=== PATIENT | female | born 1985 | race Caucasian/White ===

== ENCOUNTER → 2016-12-31 | Outpatient (CLI) | payer BC ==
--- NOTE | 2016-12-31 17:56 | Diagnostic Imaging Report ---
INDICATION: survey. TECHNIQUE: Multiple real-time grayscale images were obtained over the gravid uterus. COMPARISON: None FINDINGS: There is a single live intrauterine fetus currently vertex. Fetus is active. Amniotic fluid index is normal. Placenta is anterior and not low. heart rate of 144 beats per minute. Cervical length of 5.4 cm. anatomical survey appears normal with the exception of the stomach is not demonstrated. biometric measurements are currently average for 19 week 1 day gestation. Biometrical measurements are as follows: Biparietal 4.22 cm, age 18 weeks 6 days. Head circumference 16.14 cm, age 19 weeks 0 days. Abdominal circumference 14.03 cm, age 19 weeks 3 days. Femur length 2.98 cm, age 19 weeks 2 days. Sonographic estimate age: 19 weeks 1 days. Sonographic estimated date of delivery: 05/26/2017. Estimated Weight: 283 gm (+/- 41 gm). LMP percentile: 61%. heart rate: 144 beats per minute. Cervical length: 5.4 cm. number: 1 of 1. IMPRESSION: 1. Normal survey with the exception of the stomach not being visualized. 2. biometric measurements consistent with 19 week 1 day gestation on today's exam correlating well with previous ultrasound indicating 19 week 0 day gestation. Dictated by: Dictated on workstation # [id number]
== END ==
LOC: RAD 16:45
PROVIDERS: ATTEND Obstetrics & Gynecology
DX: Z36.89 Encounter for other specified antenatal screening (principal); Z3A.19 19 weeks gestation of pregnancy
CPT/HCPCS: 76805; 76817

== ENCOUNTER 2017-05-12 15:05 | Inpatient (IN) | payer BC ==
[~2017-05-12] VITALS: Ht 167.6 cm; Wt 95.3 kg
[2017-05-12] VITALS (37 sets, daily range): BP systolic 108–175; BP diastolic 58–96
--- OUTSIDE RECORDS SUMMARY | 2017-05-12 16:24 | XMS REPORT ---
Author Author Daina Irwin [facility] Address [address] [facility] [address] [place], [place] [id number] Care Team Providers Care Disease Control Inspector Name Role Phone Daina Irwin PCP Unavailable Allergies and Adverse Reactions Name Reaction Notes NO KNOWN DRUG ALLERGIES Plan of Treatment Planned Activity Comments Planned Date Planned Time Plan/Goal Transabdominal / Transvaginal US (non-OB) 12/17/2016 12:00 AM Transabdominal / Transvaginal US (non-OB) 12/17/2016 12:00 AM Complete obstetrical ultrasound of single fetus at more than 14 weeks gestation 12/17/2016 12:00 AM Medications Active Name Start Date Estimated Completion Date SIG Comments lorazepam 0.5 mg oral tablet Camrese 0.15 mg-30 mcg (84)/10 mcg (7) oral tablets,dose pack,3 month 201609/05/2017 TAKE ONE TABLET BY MOUTH ONCE DAILY for 90 days meloxicam 15 mg oral tablet take 1 tablet (15 mg) by oral route once daily Name Start Date Expiration Date SIG Comments Sprintec (28) 0.25-35 mg-mcg oral tablet 08/02/2010 07/04/2011 take 1 tablet by oral route once daily for 28 days Pura 0.35 mg oral tablet 01/07/2012 02/04/2012 TAKE ONE TABLET BY MOUTH EVERY DAY Flagyl 500 mg oral tablet 03/08/2013 03/15/2013 take 1 tablet (500 mg) by oral route 2 times per day for 7 days Seasonique 0.15 mg-30 mcg (84)/10 mcg (7) oral tablets,dose pack,3 month 03/0101/31/2015 take 1 tablet by oral route once daily for 84 days Diflucan 150 mg oral tablet 06/12/2015 06/13/2015 take 1 tablet (150 mg) by oral route once for 1 day Camrese 0.15 mg-30 mcg (84)/10 mcg (7) oral tablets,dose pack,3 month 201503/08/2016 TAKE ONE TABLET BY MOUTH ONCE DAILY for 90 days Flagyl 500 mg oral tablet 08/28/2015 09/04/2015 take 1 tablet (500 mg) by oral route 2 times per day for 7 days Diflucan 150 mg oral tablet 09/10/2016 09/11/2016 take 1 tablet (150 mg) by oral route once for 1 day Discontinued Name Start Date Discontinued Date SIG Comments Ortho Micronor 0.35 mg oral tablet 06/04/2010 08/02/2010 take 1 tablet by oral route once daily for 28 days Pt. quit Sprintec (28) 0.25-35 mg-mcg oral tablet 02/16/2013 03/10/2013 TAKE ONE TABLET BY MOUTH EVERY DAY meloxicam oral 09/10/2016 Diflucan 150 mg oral tablet 02/28/2013 03/10/2013 take 1 tablet (150mg) by oral route X 1 dose Depo-Provera 150 mg/mL intramuscular syringe 02/28/2013 11/17/2013 inject 1 milliliter (150 mg) by intramuscular route every 3 months Flagyl 500 mg oral tablet 03/01/2014 04/10/2014 take 1 tablet (500 mg) by oral route every 12 hours for 7 days Problem List Description Status Onset Low grade squamous intraepithelial lesion (LGSIL) on Pap smear Active 2014 Breast Skin Texture Changes Active 07/06/2014 Vital Signs Date Time BP-Sys(mm[Hg] BP-Kaylin(mm[Hg]) HR(bpm) RR(rpm) Temp WT HT HC BMI BSA BMI Percentile O2 Sat(%) 12/16/2016 4:06:00 PM 111 mmHg 67 mmHg 87 bpm 98.8 F 175 lbs 09/10/2016 8:55:00 AM 108 mmHg 73 mmHg 69 bpm 97.6 F 163 lbs 66 in 26.3086 kg/m 1.8555 m 08/28/2015 11:47:00 AM 131 mmHg 77 mmHg 71 bpm 97.8 F 166 lbs 66 in 26.79 kg/m2 1.87 m2 08/09/2015 1:31:00 PM 109 mmHg 71 mmHg 71 bpm 97.8 F 167.5 lbs 66 in 27.0349 kg/m 1.881 m 07/25/2015 2:14:00 PM 120 mmHg 79 mmHg 82 bpm 98.1 F 167 lbs 66 in 26.95 kg/m2 1.88 m2 06/27/2015 3:40:00 PM 123 mmHg 67 mmHg 67 bpm 98 F 168.125 lbs 66 in 27.1358 kg/m 1.8845 m 06/12/2015 3:14:00 PM 125 mmHg 66 mmHg 86 bpm 98.2 F 171 lbs 66 in 27.60 kg/m2 1.90 m2 11/02/2014 9:30:00 AM 118 mmHg 72 mmHg 76 bpm 97.4 F 164 lbs 66 in 26.47 kg/m 1.8612 m 10/09/2014 1:50:00 PM 113 mmHg 72 mmHg 77 bpm 98 F 165 lbs 66 in 26.63 kg/m2 1.87 m2 07/06/2014 4:03:00 PM 120 mmHg 79 mmHg 74 bpm 97.6 F 163 lbs 66 in 26.3086 kg/m 1.8555 m 04/10/2014 1:37:00 PM 123 mmHg 70 mmHg 67 bpm 97.6 F 166 lbs 66 in 26.79 kg/m2 1.87 m2 03/01/2014 2:09:00 PM 119 mmHg 62 mmHg 69 bpm 97.6 F 168 lbs 66 in 27.1156 kg/m 1.8838 m 11/17/2013 4:17:00 PM 122 mmHg 75 mmHg 72 bpm 98.4 F 163 lbs 66 in 26.31 kg/m2 1.86 m2 08/23/2013 4:24:00 PM 114 mmHg 75 mmHg 71 bpm 97.8 F 160 lbs 66 in 25.8244 kg/m 1.8384 m 06/02/2013 3:08:00 PM 111 mmHg 72 mmHg 82 bpm 97.6 F 160.125 lbs 66 in 25.84 kg/m2 1.84 m2 03/10/2013 3:26:00 PM 109 mmHg 69 mmHg 73 bpm 97.8 F 164 lbs 66 in 26.47 kg/m 1.8612 m 02/28/2013 4:14:00 PM 119 mmHg 67 mmHg 63 bpm 97.5 F 165 lbs 66 in 26.63 kg/m2 1.87 m2 01/29/2012 4:58:00 PM 109 mmHg 66 mmHg 68 bpm 98.3 F 159.25 lbs 66 in 25.7034 kg/m 1.8341 m 05/28/2011 5:09:00 PM 110 mmHg 71 mmHg 81 bpm 98.1 F 161.125 lbs 66 in 26.01 kg/m2 1.84 m2 11/27/2010 11:14:00 AM 110 mmHg 75 mmHg 66 bpm 171 lbs 66 in 27.5998 kg/m 1.9005 m 06/04/2010 3:20:00 PM 118 mmHg 84 mmHg 107 bpm 97 F 177 lbs 11/27/2009 11:56:00 AM 112 mmHg 72 mmHg 85 bpm 97.8 F 165 lbs 66 in 26.6314 kg/m 1.8669 m Social History Name Description Comments Tobacco Never smoker Alcohol Current some day History of Procedures Date Ordered Description Order Status 11/27/2010 12:00 AM SPECIMEN HANDLING OFFICE-LAB Reviewed 11/27/2010 12:00 AM CYTOPATH TBS C/V MANUAL Reviewed 06/12/2015 12:00 AM SPECIMEN HANDLING OFFICE-LAB Reviewed 06/12/2015 12:00 AM CYTOPATH C/V THIN LAYER Reviewed 06/27/2015 4:02 PM URINE TEST Reviewed 06/27/2015 12:00 AM BX/CURETT OF CERVIX W/SCOPE Reviewed 07/25/2015 12:00 AM COMPLETE CBC W/AUTO DIFF WBC Reviewed 07/25/2015 12:00 AM URINE TEST Reviewed 07/25/2015 12:00 AM Type & Screen (PREOP) Reviewed 09/10/2016 12:00 AM SPECIMEN HANDLING OFFICE-LAB Reviewed 09/10/2016 12:00 AM CYTOPATH C/V THIN LAYER Reviewed 01/29/2012 12:00 AM CYTOPATH C/V MANUAL Reviewed 01/29/2012 12:00 AM SPECIMEN HANDLING OFFICE-LAB Reviewed 01/29/2012 12:00 AM CHLAMYDIA CULTURE Reviewed 01/29/2012 12:00 AM N.GONORRHOEAE DNA AMP PROB Reviewed 02/28/2013 12:00 AM CYTOPATH C/V MANUAL Reviewed 02/28/2013 12:00 AM SPECIMEN HANDLING OFFICE-LAB Reviewed 02/28/2013 12:00 AM CHLAMYDIA CULTURE Reviewed 02/28/2013 12:00 AM N.GONORRHOEAE DNA AMP PROB Reviewed 02/28/2013 12:00 AM TRICHOMONAS ASSAY W/OPTIC Reviewed 03/10/2013 3:45 PM THER/PROPH/DIAG INJ SC/IM Reviewed 03/10/2013 3:45 PM Depo-Provera 150 Mg Reviewed 06/02/2013 12:00 AM THER/PROPH/DIAG INJ SC/IM Reviewed 06/02/2013 12:00 AM Injection, medroxyprogesterone acetate, 150 mg (brought in by patient) Reviewed 11/27/2009 12:00 AM CYTOPATH C/V THIN LAYER Reviewed 11/27/2009 12:00 AM SPECIMEN HANDLING OFFICE-LAB Reviewed 11/27/2009 12:00 AM N.GONORRHOEAE DNA AMP PROB Reviewed 11/27/2009 12:00 AM CHLAMYDIA CULTURE Reviewed 11/27/2009 12:00 AM OBSTETRIC PANEL Reviewed 11/27/2009 12:00 AM HIV-1ANTIBODY Reviewed 11/27/2009 12:00 AM URINALYSIS AUTO W/SCOPE Reviewed 12/12/2009 12:00 AM OB US >/=14 WKS SNGL FETUS Reviewed 01/28/2010 12:00 AM EXAM OF CERVIX W/SCOPE Reviewed 08/23/2013 4:39 PM THER/PROPH/DIAG INJ SC/IM Reviewed 03/07/2010 12:00 AM GLUCOSE TEST Reviewed 03/07/2010 12:00 AM Type and screen Reviewed 03/07/2010 12:00 AM COMPLETE CBC W/AUTO DIFF WBC Reviewed 03/11/2010 12:00 AM GLUCOSE TOLERANCE TEST (GTT) Reviewed 11/17/2013 4:41 PM URINE TEST Reviewed 04/18/2010 12:00 AM CULTURE OTHR SPECIMN AEROBIC Reviewed 06/04/2010 12:00 AM CYTOPATH C/V MANUAL Reviewed 06/04/2010 12:00 AM SPECIMEN HANDLING OFFICE-LAB Reviewed 03/01/2014 12:00 AM SPECIMEN HANDLING OFFICE-LAB Reviewed 03/01/2014 12:00 AM CYTOPATH C/V THIN LAYER Reviewed 04/10/2014 12:00 AM BX/CURETT OF CERVIX W/SCOPE Reviewed 10/09/2014 2:19 PM URINE TEST Reviewed 10/09/2014 12:00 AM CYTOPATH C/V THIN LAYER Reviewed 10/09/2014 12:00 AM SPECIMEN HANDLING OFFICE-LAB Reviewed 10/09/2014 12:00 AM COMPLETE CBC W/AUTO DIFF WBC Reviewed 11/02/2014 9:39 AM URINE TEST Reviewed Results Summary Date and Description Results 11/27/2009 1:31 PM COLOR YELLOW APPEARANCE CLEAR SPEC GRAV 1.015 pH 7.0 PROTEIN NEGATIVE GLUCOSE NEGATIVE KETONE NEGATIVE BILIRUBIN NEGATIVE BLOOD NEGATIVE NITRITE NEGATIVE LEUK SCREEN NEGATIVE WBC/HPF 0-5 RBC/HPF 0-5 CASTS/ LPF NEGATIVE CRYSTALS 1+ AMORPHOUS MUCOUS THRDS NEGATIVE BACTERIA FEW EPITH CELLS FEW SQUAMOUS TRICHOMONAS NEGATIVE YEAST NEGATIVE CULT ORDERED YES 11/27/2009 1:32 PM RUBELLA 20.0 IU/mLWBC 7.9 RBC 4.06 HGB 12.20 g/dLHCT 35.80 % MCV 88.0 fLMCH 30.0 pgMCHC 34.10 g/dLRDW SD 42 RDW CV 13.10 %MPV 10.90 fLPLT 241 NRBC# 0.00 NRBC% 0.0 %NEUT 74.10 %%LYMP 19.30 %%MONO 5.80 %%EOS 0.80 %%BASO 0.0 %#NEUT 5.89 #LYMP 1.53 #MONO 0.46 #EOS 0.06 #BASO 0.00 MANUAL DIFF NOT IND 03/07/2010 12:14 PM WBC 10.7 RBC 3.89 HGB 12.10 g/dLHCT 36.30 %MCV 93.0 fLMCH 31.10 pgMCHC 33.30 g/dLRDW SD 47 RDW CV 13.70 %MPV 10.70 fLPLT 262 NRBC# 0.00 NRBC% 0.0 %NEUT 79.90 %%LYMP 15.20 %%MONO 4.50 %%EOS 0.30 %%BASO 0.10 %#NEUT 8.54 #LYMP 1.62 #MONO 0.48 #EOS 0.03 #BASO 0.01 MANUAL DIFF NOT IND 11/17/2013 4:41 PM HCG Ur Ql negative 10/09/2014 2:19 PM Test, Urine negative 10/09/2014 2:35 PM WBC 6.6 RBC 3.95 HGB 11.80 g/dLHCT 36.10 %MCV 91.0 fLMCH 29.90 pgMCHC 32.70 g/dLRDW SD 43 RDW CV 12.90 %MPV 10.30 fLPLT 239 NRBC# 0.00 NRBC% 0.0 %NEUT 61.40 %%LYMP 33.20 %%MONO 4.50 %%EOS 0.60 %%BASO 0.30 %#NEUT 4.07 #LYMP 2.20 #MONO 0.30 #EOS 0.04 #BASO 0.02 MANUAL DIFF NOT IND 11/02/2014 9:40 AM Test, Urine negative 06/27/2015 4:39 PM Test, Urine negative 07/25/2015 3:35 PM WBC 5.5 RBC 4.29 HGB 12.80 g/dLHCT 40.10 %MCV 94.0 fLMCH 29.80 pgMCHC 31.90 g/dLRDW SD 44 RDW CV 12.80 %MPV 10.40 fLPLT 262 NRBC# 0.00 NRBC% 0.0 %NEUT 59.90 %%LYMP 32.0 %%MONO 6.40 %%EOS 1.10 %%BASO 0.40 %#NEUT 3.30 #LYMP 1.76 #MONO 0.35 #EOS 0.06 #BASO 0.02 MANUAL DIFF NOT IND TEST NEGATIVE History Of Immunizations Not available. History of Past Illness Name Date of Onset Comments test confirmed positive Nov 27 2009 11:59AM , First Normal Dec 12 2009 5:47PM Low grade squamous intraepithelial lesion (LGSIL) on Pap smear Jan 28 2010 4: 52PM Low grade squamous intraepithelial lesion (LGSIL) on Pap smear 04/10/2014 Breast Skin Texture Changes 07/06/2014 , First Normal Mar 07 2010 10:35AM Impaired glucose tolerance test (oral) Mar 11 2010 3:23PM , First Normal Mar 11 2010 3:23PM Group B Strep Screening, Apr 18 2010 8:57AM , First Normal Apr 18 2010 8:57AM Post- Follow-Up Jun 04 2010 3:23PM Cervical Dysplasia, mild Jun 04 2010 3:23PM Abnormal PAP-low grade (LGSIL) Nov 27 2010 11:15AM Routine gynecological examination Jan 29 2012 5:01PM Routine gynecological examination Feb 28 2013 4:19PM Contraceptive management Feb 28 2013 4:19PM Vaginal Discharge Feb 28 2013 4:19PM Contraceptive counseling (Depo-Provera) Mar 10 2013 3:45PM Contraceptive counseling (Depo-Provera) Jun 02 2013 3:17PM Contraceptive counseling (Depo-Provera) Aug 23 2013 4:38PM Contraceptive Management Nov 17 2013 4:20PM Routine gynecological examination Mar 01 2014 2:13PM Contraception, Oral Prescription Mar 01 2014 2:13PM Contraceptive management Mar 01 2014 2:13PM Bacterial Vaginitis Mar 01 2014 2:13PM Low grade squamous intraepithelial lesion (LGSIL) on Pap smear Apr 10 2014 1: 39PM Breast Skin Texture Changes Jul 06 2014 4:08PM Pap Smear Oct 09 2014 1:55PM Papanicolaou smear of cervix with low grade squamous intraepithelial lesion ( LGSIL) Oct 09 2014 1:55PM Dizziness Oct 09 2014 1:55PM Bruising Oct 09 2014 1:55PM Special investigations and examinations; examination or test; examination or test, negative result Nov 02 2014 9:39AM Low grade squamous intraepithelial lesion (LGSIL) on Pap smear Nov 02 2014 9: 32AM Cervicitis Nov 02 2014 9:32AM Vaginal discharge Nov 02 2014 9:32AM Low grade squamous intraepithelial lesion (LGSIL) on Pap smear Nov 02 2014 9: 32AM Cervicitis Nov 02 2014 9:32AM Vaginal discharge Nov 02 2014 9:32AM Routine gynecological examination Jun 12 2015 3:19PM Contraceptive management Jun 12 2015 3:19PM Vaginal Discharge Jun 12 2015 3:19PM Encounter for test, result negative Jun 27 2015 4:02PM Low grade squamous intraepithelial lesion (LGSIL) on Pap smear Jun 27 2015 3: 44PM Pre-op exam Jul 25 2015 2:14PM ADWOA II (cervical intraepithelial neoplasia II) Jul 25 2015 2:14PM Abnormal anal Papanicolaou smear Aug 09 2015 1:34PM Cervical dysplasia, moderate Aug 09 2015 1:34PM Postoperative Examination Following Surgery Aug 28 2015 11:49AM ADWOA II (cervical intraepithelial neoplasia II) Aug 28 2015 11:49AM Routine gynecological examination Sep 10 2016 8:59AM Contraceptive management Sep 10 2016 8:59AM Vaginal yeast infection Sep 10 2016 8:59AM Pelvic pain Dec 17 2016 9:03AM test positive Dec 17 2016 9:03AM Payers Insurance Name Company Name Plan Name Plan Number Policy Number Policy Group Number Start Date [employer] [place] [id number] N/A [place] [employer] [place] [employer] [place] Prog [id number] N/A [facility] [id number] N/A [facility] [employer] [id number] N/A [facility] [employer] [id number] N/A History of Encounters Visit Date Visit Type Provider 12/16/2016 Office visit Daina Irwin DYNAMICIST 09/10/2016 Office visit Daina Irwin DYNAMICIST 08/28/[address] Lita Hines MD 08/09/2015 Surgery DYLAN COATES DO 08/01/[address] [facility] [address] Lita Hines MD 07/25/[address] Lita Hines MD 06/27/[address] Lita Hines MD 06/12/2015 Office visit Daina Irwin DYNAMICIST 11/02/[address] MARIELOS ROMO MD 10/09/2014 Office visit Daina Irwin DYNAMICIST 07/06/2014 Office visit Daina Irwin DYNAMICIST 04/10/2014 Procedures Sumi Elise MD 03/01/2014 Office visit Daina Irwin DYNAMICIST 11/17/2013 Office visit Daina Irwin DYNAMICIST 08/23/2013 Nurse visit Daina Irwin DYNAMICIST 06/02/2013 Nurse visit Sumi Elise MD 03/10/2013 Nurse visit Daina Irwin DYNAMICIST 02/28/2013 Office visit Daina Irwin DYNAMICIST 01/29/2012 Office visit Sumi Elise MD 05/28/2011 Voided Sumi Elise MD 11/27/2010 Office visit Sumi Elise MD 06/04/2010 Office visit Sumi Elise MD 05/02/2010 [facility] Sumi Elise MD 04/29/2010 Office visit Sumi Elise MD 04/18/2010 [facility] Sumi Elise MD 04/18/2010 Office visit Sumi Elise MD 04/04/2010 Office visit Sumi Elise MD 03/21/2010 Office visit Sumi Elise MD 03/07/2010 Office visit Sumi Elise MD 02/11/2010 Office visit Sumi Elise MD 01/28/2010 Procedures Sumi Elise MD 01/15/2010 Office visit Sumi Elise MD 12/12/2009 Office visit Sumi Elise MD 11/27/2009 Office visit Sumi Elise MD
--- OUTSIDE RECORDS SUMMARY | 2017-05-12 16:25 | XMS REPORT ---
Author Author Lita Hines [facility] Address [address] [place], [place] [id number] Care Team Providers Care Clam Grower Name Role Phone Lita Hines PCP Unavailable Allergies and Adverse Reactions Name Reaction Notes NO KNOWN DRUG ALLERGIES Plan of Treatment Not available. Medications Active Name Start Date Estimated Completion Date SIG Comments meloxicam oral lorazepam 0.5 mg oral tablet Camrese 0.15 mg-30 mcg (84)/10 mcg (7) oral tablets,dose pack,3 month 201503/08/2016 TAKE ONE TABLET BY MOUTH ONCE DAILY for 90 days Name Start Date Expiration Date SIG Comments [...] TAKE ONE TABLET BY MOUTH EVERY DAY Diflucan 150 mg oral tablet 02/28/2013 03/10/2013 [...] HC BMI BSA BMI Percentile O2 Sat(%) 06/27/2015 3:40:00 PM 123 mmHg 67 mmHg 67 bpm 98 F 168.125 lbs 66 in 27.14 kg/m2 1.88 m2 06/12/2015 3:14:00 PM 125 mmHg 66 mmHg 86 bpm 98.2 F 171 lbs 66 in 27.5998 kg/m 1.9005 m 11/02/2014 9:30:00 AM 118 mmHg 72 mmHg 76 bpm 97.4 F 164 lbs 66 in 26.47 kg/m2 1.86 m2 10/09/2014 1:50:00 PM 113 mmHg 72 mmHg 77 bpm 98 F 165 lbs 66 in 26.6314 kg/m 1.8669 m 07/06/2014 4:03:00 PM 120 mmHg 79 mmHg 74 bpm 97.6 F 163 lbs 66 in 26.31 kg/m2 1.86 m2 04/10/2014 1:37:00 PM 123 mmHg 70 mmHg 67 bpm 97.6 F 166 lbs 66 in 26.7928 kg/m 1.8725 03/01/2014 2:09:00 PM 119 mmHg 62 mmHg 69 bpm 97.6 F 168 lbs 66 in 27.12 kg/m2 1.88 m2 11/17/2013 4:17:00 PM 122 mmHg 75 mmHg 72 bpm 98.4 F 163 lbs 66 in 26.3086 kg/m 1.8555 m 08/23/2013 4:24:00 PM 114 mmHg 75 mmHg 71 bpm 97.8 F 160 lbs 66 in 25.82 kg/m2 1.84 m2 06/02/2013 3:08:00 PM 111 mmHg 72 mmHg 82 bpm 97.6 F 160.125 lbs 66 in 25.8446 kg/m 1.8391 m 03/10/2013 3:26:00 PM 109 mmHg 69 mmHg 73 bpm 97.8 F 164 lbs 66 in 26.47 kg/m2 1.86 m2 02/28/2013 4:14:00 PM 119 mmHg 67 mmHg 63 bpm 97.5 F 165 lbs 66 in 26.6314 kg/m 1.8669 m 01/29/2012 4:58:00 PM 109 mmHg 66 mmHg 68 bpm 98.3 F 159.25 lbs 66 in 25.70 kg/m2 1.83 m2 05/28/2011 5:09:00 PM 110 mmHg 71 mmHg 81 bpm 98.1 F 161.125 lbs 66 in 26.006 kg/m 1.8448 m 11/27/2010 11:14:00 AM 110 mmHg 75 mmHg 66 bpm 171 lbs 66 in 27.60 kg/m2 1.90 m2 06/04/2010 3:20:00 PM 118 mmHg 84 mmHg 107 bpm 97 F 177 lbs 11/27/2009 11:56:00 AM 112 mmHg 72 mmHg 85 bpm 97.8 F 165 lbs 66 in 26.63 kg/m2 1.87 m2 Social History Name Description Comments Tobacco Never smoker Alcohol Current some day History of Procedures Date Ordered Description Order Status 11/27/2010 12:00 AM SPECIMEN HANDLING OFFICE-LAB Reviewed 11/27/2010 12:00 AM CYTOPATH TBS C/V MANUAL Reviewed 06/12/2015 12:00 AM SPECIMEN HANDLING OFFICE-LAB Reviewed 06/12/2015 12:00 AM CYTOPATH C/V THIN LAYER Returned 06/27/2015 4:02 PM URINE TEST Reviewed 06/27/2015 12:00 AM BX/CURETT OF CERVIX W/SCOPE Returned 01/29/2012 12:00 AM CYTOPATH C/V MANUAL Returned 01/29/2012 12:00 AM SPECIMEN HANDLING OFFICE-LAB Reviewed 01/29/2012 12:00 AM CHLAMYDIA CULTURE Returned 01/29/2012 12:00 AM N.GONORRHOEAE DNA AMP PROB Returned 02/28/2013 12:00 AM CYTOPATH C/V MANUAL Returned 02/28/2013 12:00 AM SPECIMEN HANDLING OFFICE-LAB Reviewed 02/28/2013 12:00 AM CHLAMYDIA CULTURE Returned 02/28/2013 12:00 AM N.GONORRHOEAE DNA AMP PROB Returned 02/28/2013 12:00 AM TRICHOMONAS ASSAY W/OPTIC Returned 03/10/2013 3:45 PM THER/PROPH/DIAG INJ SC/IM Reviewed [...] 03/01/2014 12:00 AM CYTOPATH C/V THIN LAYER Returned 04/10/2014 12:00 AM BX/CURETT OF CERVIX W/SCOPE Returned 10/09/2014 2:19 PM URINE TEST Reviewed 10/09/2014 12:00 AM CYTOPATH C/V THIN LAYER Returned 10/09/2014 12:00 AM SPECIMEN HANDLING OFFICE-LAB Reviewed 10/09/2014 12:00 AM COMPLETE CBC W/AUTO DIFF WBC Returned 11/02/2014 9:39 AM URINE TEST Reviewed Results Summary Data and Description Results 11/27/2009 1:31 PM COLOR YELLOW APPEARANCE CLEAR SPEC GRAV 1.015 pH 7.0 PROTEIN NEGATIVE GLUCOSE NEGATIVE KETONE NEGATIVE BILIRUBIN NEGATIVE BLOOD NEGATIVE NITRITE NEGATIVE LEUK SCREEN NEGATIVE CASTS/LPF NEGATIVE CRYSTALS 1+ AMORPHOUS MUCOUS THRDS NEGATIVE BACTERIA FEW EPITH CELLS FEW SQUAMOUS TRICHOMONAS NEGATIVE YEAST NEGATIVE 11/27/2009 1:32 PM RUBELLA 20.0 IU/mLWBC 7.9 RBC 4.06 HGB 12.20 g/dLHCT 35.80 % MCV 88.0 fLMCH 30.0 pgMCHC 34.10 g/dLRDW CV 13.10 %MPV 10.90 fLPLT 241 %NEUT 74.10 %%LYMP 19.30 %%MONO 5.80 %%EOS 0.80 %%BASO 0.0 %#NEUT 5.89 #LYMP 1.53 # MONO 0.46 #EOS 0.06 #BASO 0.00 03/07/2010 12:14 PM WBC 10.7 RBC 3.89 HGB 12.10 g/dLHCT 36.30 %MCV 93.0 fLMCH 31.10 pgMCHC 33.30 g/dLRDW CV 13.70 %MPV 10.70 fLPLT 262 %NEUT 79.90 %%LYMP 15.20 %%MONO 4.50 %%EOS 0.30 %%BASO 0.10 %#NEUT 8.54 #LYMP 1.62 #MONO 0.48 #EOS 0.03 #BASO 0.01 04/18/2010 10:34 AM URIC ACID 4.5 mg/dLLDH 151.0 IU/LWBC 8.8 RBC 3.85 HGB 11.80 g/dLHCT 36.0 %MCV 94.0 fLMCH 30.60 pgMCHC 32.80 g/dLRDW CV 13.80 %MPV 11.60 fLPLT 214 %NEUT 78.70 %%LYMP 14.0 %%MONO 6.90 %%EOS 0.30 %%BASO 0.10 %# NEUT 6.91 #LYMP 1.23 #MONO 0.61 #EOS 0.03 #BASO 0.01 GLUCOSE 106.0 mg/dLSODIUM 134.0 mmol/LPOTASSIUM 3.90 mmol/LCHLORIDE 104.0 mmol/LCO2 21.0 mmol/LBUN 9.0 mg/ dLCREATININE 0.70 mg/dLSGOT/AST 18.0 IU/LSGPT/ALT 11.0 IU/LALK PHOS 122.0 IU/ LTOTAL PROTEIN 6.80 g/dLALBUMIN 3.30 g/dLTOTAL BILI 0.30 mg/dLCALCIUM 9.60 mg/ dLeGFR >60 mL/min/1.73 m2 04/19/2010 5:20 PM PROTEIN UR 10.0 mg/dLPROTEIN UR 24H 168.0 mg/24 hr 05/02/2010 12:45 PM WBC 9.5 RBC 3.77 HGB 11.60 g/dLHCT 35.50 %MCV 94.0 fLMCH 30.80 pgMCHC 32.70 g/dLRDW CV 13.90 %MPV 12.30 fLPLT 210 %NEUT 80.80 %%LYMP 13.60 %%MONO 5.30 %%EOS 0.20 %%BASO 0.10 %#NEUT 7.64 #LYMP 1.29 #MONO 0.50 #EOS 0.02 #BASO 0.01 11/17/2013 4:41 PM HCG Ur Ql negative 10/09/2014 2:19 PM Test, Urine negative 10/09/2014 2:35 PM WBC 6.6 RBC 3.95 HGB 11.80 g/dLHCT 36.10 %MCV 91.0 fLMCH 29.90 pgMCHC 32.70 g/dLRDW CV 12.90 %MPV 10.30 fLPLT 239 %NEUT 61.40 %%LYMP 33.20 %%MONO 4.50 %%EOS 0.60 %%BASO 0.30 %#NEUT 4.07 #LYMP 2.20 #MONO 0.30 #EOS 0.04 #BASO 0.02 11/02/2014 9:40 AM Test, Urine negative 06/27/2015 4:39 PM Test, Urine negative History Of Immunizations Not available. History of [...] Pap smear Jun 27 2015 3: 44PM Payers Insurance Name Company Name Plan Name Plan Number Policy Number Policy Group Number Start Date [facility] [place] [id number] N/A [place] Medical Assistance [facility] Medical Assistance Pro [id number] N/A [facility]s [facility] [id number] N/A [facility] [employer] [id number] N/A History of Encounters Visit Date Visit Type Provider 06/27/[address] Lita Hines MD 06/12/2015 Office visit Daina Irwin AIRPORT OPERATIONS SPECIALIST 11/02/[address] MARIELOS ROMO MD 10/09/2014 Office visit Daina Irwin AIRPORT OPERATIONS SPECIALIST 07/06/2014 Office visit Daina Irwin AIRPORT OPERATIONS SPECIALIST 04/10/2014 Procedures Sumi Elise MD 03/01/2014 Office visit Daina Irwin AIRPORT OPERATIONS SPECIALIST 11/17/2013 Office visit Daina Irwin AIRPORT OPERATIONS SPECIALIST 08/23/2013 Nurse visit Daina Irwin AIRPORT OPERATIONS SPECIALIST 06/02/2013 Nurse visit Sumi Elise MD 03/10/2013 Nurse visit Daina Irwin AIRPORT OPERATIONS SPECIALIST 02/28/2013 Office visit Daina Irwin AIRPORT OPERATIONS SPECIALIST 01/29/2012 Office visit Sumi Elise MD 05/28/2011 Voided Sumi Elise MD 11/27/2010 Office visit Sumi Elise MD 06/04/2010 Office visit Sumi Elise MD 05/02/2010 [facility] Sumi Elise MD 04/29/2010 Office visit Sumi Elise MD 04/18/2010 [facility] Sumi Elise MD 04/18/2010 Office visit [...]
--- OUTSIDE RECORDS SUMMARY | 2017-05-12 16:26 | XMS REPORT ---
Author Author Daniela Mccullough [facility] Address [address] [place], [place] [id number] Care Team Providers Care Javascript Engineer Name Role Phone Daniela Mccullough PCP Unavailable Allergies and Adverse Reactions Name Reaction Notes NO KNOWN DRUG ALLERGIES Plan of Treatment Not available. Medications Active Name Start Date Estimated Completion Date SIG Comments meloxicam oral Seasonique 0.15 mg-30 mcg (84)/10 mcg (7) oral tablets,dose pack,3 month 03/0101/31/2015 take 1 tablet by oral route once daily for 84 days Name Start Date Expiration Date SIG Comments Sprintec (28) 0.25-35 mg-mcg oral tablet 08/02/2010 07/04/2011 take 1 tablet by oral route once daily for 28 days Pura 0.35 mg oral tablet 01/07/2012 02/04/2012 TAKE ONE TABLET BY MOUTH EVERY DAY Flagyl 500 mg oral tablet 03/08/2013 03/15/2013 take 1 tablet (500 mg) by oral route 2 times per day for 7 days Discontinued Name Start Date Discontinued Date SIG [...] HC BMI BSA BMI Percentile O2 Sat(%) 11/02/2014 9:30:00 AM 118 mmHg 72 mmHg [...] 166 lbs 66 in 26.7928 kg/m 1.8725 m 03/01/2014 2:09:00 PM 119 mmHg 62 mmHg [...] 160.125 lbs 66 in 25.8446 kg/m 1.8391 03/10/2013 3:26:00 PM 109 mmHg 69 mmHg [...] 12:00 AM CYTOPATH TBS C/V MANUAL Reviewed 01/29/2012 12:00 AM CYTOPATH C/V MANUAL Returned [...] 0.02 11/02/2014 9:40 AM Test, Urine negative History Of Immunizations Not [...] 9:32AM Vaginal discharge Nov 02 2014 9:32AM Payers Insurance Name Company Name Plan Name Plan Number Policy Number Policy Group Number Start Date [facility] [id number] N/A [place] Medical Assistance [facility] Medical Assistance Pro [id number] N/A [facility] [id number] N/A Pending sale to [facility] [employer] [id number] N/A History of Encounters Visit Date Visit Type Provider 11/02/[address] Daniela Mccullough MD 10/09/2014 Office visit Daina Irwin RN BSN 07/06/2014 Office visit Daina Irwin RN BSN 04/10/2014 Procedures Sumi Elise MD 03/01/2014 Office visit Daina Irwin RN BSN 11/17/2013 Office visit Daina Irwin RN BSN 08/23/2013 Nurse visit Daina Irwin RN BSN 06/02/2013 Nurse visit Sumi Elsie MD 03/10/2013 Nurse visit Daina Irwin RN BSN 02/28/2013 Office visit Daina Irwin RN BSN 01/29/2012 Office visit Sumi Elise MD 05/28/2011 Voided Sumi Elise MD 11/27/2010 Office visit Sumi Elise MD 06/04/2010 Office visit Sumi Elise MD 05/02/2010 [facility] Sumi Elise MD 04/29/2010 Office visit Sumi Elise MD 04/18/2010 [facility] Sumi Elise MD 04/18/2010 Office visit [...]
--- OUTSIDE RECORDS SUMMARY | 2017-05-12 16:26 | XMS REPORT ---
Author Author Lita Hines [facility] Address [address] [place], [place] [address] Care Team Providers Care Feed Mixer Helper Name Role Phone Lita Hines PCP Unavailable [...] HC BMI BSA BMI Percentile O2 Sat(%) 08/09/2015 1:31:00 PM 109 mmHg 71 mmHg 71 bpm 97.8 F 167.5 lbs 66 in 27.03 kg/m2 1.88 m2 07/25/2015 2:14:00 PM 120 mmHg 79 mmHg 82 bpm 98.1 F 167 lbs 66 in 26.9542 kg/m 1.8781 06/27/2015 3:40:00 PM 123 mmHg 67 mmHg [...] 12:00 AM BX/CURETT OF CERVIX W/SCOPE Returned 07/25/2015 12:00 AM COMPLETE CBC W/AUTO DIFF WBC Returned 07/25/2015 12:00 AM URINE TEST Returned 07/25/2015 12:00 AM Type & Screen (PREOP) Returned 01/29/2012 12:00 AM CYTOPATH C/V MANUAL [...] %MCV 94.0 fLMCH 29.80 pgMCHC 31.90 g/dLRDW CV 12.80 %MPV 10.40 fLPLT 262 %NEUT 59.90 %%LYMP 32.0 %%MONO 6.40 %%EOS 1.10 %%BASO 0.40 %#NEUT 3.30 #LYMP 1.76 #MONO 0.35 #EOS 0.06 #BASO 0.02 08/01/2015 7:19 AM TEST UR NEGATIVE History Of Immunizations Not available. History [...] Cervical dysplasia, moderate Aug 09 2015 1:34PM Payers Insurance Name Company Name Plan Name Plan Number Policy Number Policy Group Number Start Date [facility] [id number] N/A [place] Medical Assistance Program [place] Medical Assistance Pro [id number] N/A [facility] [id number] N/A [facility] [employer] [id number] N/A History of Encounters Visit Date Visit Type Provider 08/09/2015 Surgery DYLAN VO DO 08/01/[address] Lita Hines MD 07/25/[address] Lita Hines MD 06/27/[address] Lita Hines MD 06/12/2015 Office visit Daina Irwin ORTHOPTIST 11/02/[address] MARIELOS ROMO MD 10/09/2014 Office visit Daina Irwin ORTHOPTIST 07/06/2014 Office visit Daina Bolaños Dc ORTHOPTIST 04/10/2014 Procedures Sumi Elise MD 03/01/2014 Office visit Daina Bolaños Dc ORTHOPTIST 11/17/2013 Office visit Daina Bolaños Irwin ORTHOPTIST 08/23/2013 Nurse visit Daina Bolaños Irwin ORTHOPTIST 06/02/2013 Nurse visit Sumi Elise MD 03/10/2013 Nurse visit Daina Bolaños Dc ORTHOPTIST 02/28/2013 Office visit Daina M. Dc ORTHOPTIST 01/29/2012 Office visit Sumi Elise MD 05/28/2011 Voided Sumi Elise MD 11/27/2010 Office visit Suim Elise MD 06/04/2010 Office visit Sumi Elise MD 05/02/2010 [facility] Sumi Elise MD 04/29/2010 Office visit Sumi Elise MD 04/18/2010 [facility] Sumi Elise MD 04/18/2010 Office visit Sumi Elise MD 04/04/2010 Office visit Sumi Elise MD 03/21/2010 Office visit Sumi Elise MD 03/07/2010 Office visit Sumi Elise MD 02/11/2010 Office visit Sumi Elise MD 01/28/2010 Procedures Sumi Elise MD 01/15/2010 Office visit Sumi Elise MD 12/12/2009 Office visit Sumi Elise MD 11/27/2009 Office visit Sumi Elise MD
--- OUTSIDE RECORDS SUMMARY | 2017-05-12 16:27 | XMS REPORT ---
Author Author [facility] Organization [facility] Address [address] [place], [place] [address] Care Team Providers Care Legislative Aide Name Role Phone PCP Unavailable Allergies and Adverse Reactions Name Reaction Notes NO KNOWN DRUG ALLERGIES Plan of Treatment Not available. Medications Active Name Start Date Estimated Completion Date SIG Comments meloxicam oral Seasonique oral tablets,dose pack,3 month 0.15 mg-30 mcg (84)/10 mcg (7) 03/0101/31/2015 take 1 tablet by oral route once daily for 84 days Name Start Date Expiration Date SIG Comments Sprintec (28) Oral Tablet 0.25-35 mg-mcg 08/02/2010 07/04/2011 take 1 tablet by oral route once daily for 28 days Pura Oral tablet 0.35 mg 01/07/2012 02/04/2012 TAKE ONE TABLET BY MOUTH EVERY DAY Flagyl oral tablet 500 mg 03/08/2013 03/15/2013 take 1 tablet (500 mg) by oral route 2 times per day for 7 days Discontinued Name Start Date Discontinued Date SIG Comments Ortho Micronor Oral Tablet 0.35 mg 06/04/2010 08/02/2010 take 1 tablet by oral route once daily for 28 days Pt. 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 Skin Texture Changes Active 07/06/2014 Vital Signs Date Time BP-Sys(mm[Hg] BP-Kaylin(mm[Hg]) HR(bpm) RR(rpm) Temp WT HT HC BMI BSA BMI Percentile O2 Sat(%) 07/06/2014 4:03:00 PM 120 mmHg 79 mmHg [...] Name Description Comments Tobacco Never smoker Alcohol History of Procedures Date Ordered Description Order [...] 03/10/2013 3:45 PM THER/PROPH/DIAG INJ SC/IM Reviewed 06/02/2013 12:00 AM THER/PROPH/DIAG INJ SC/IM Reviewed 11/27/2009 12:00 AM CYTOPATH C/V THIN [...] 12:00 AM BX/CURETT OF CERVIX W/SCOPE Returned Results Summary Data and Description Results 11/27/2009 [...] 11/17/2013 4:41 PM HCG Ur Ql negative History Of Immunizations Not available. History of Past Illness Name Date of Onset Comments *No known medical problems test confirmed positive Nov 27 2009 11:59AM [...] Skin Texture Changes Jul 06 2014 4:08PM Payers Insurance Name Company Name Plan Name Plan Number Policy Number Policy Group Number Start Date [facility] [id number] N/A [place] Medical Assistance [facility] Medical Assistance Pro [id number] N/A [facility] [id number] N/A [facility] [employer] [id number] N/A History of Encounters Visit Date Visit Type Provider 07/06/2014 Office visit Daina Irwin CHIEF OF SAFETY AND PROTECTION 04/10/2014 Procedures Sumi Elise MD 03/01/2014 Office visit Daina Irwin CHIEF OF SAFETY AND PROTECTION 11/17/2013 Office visit Daina Irwin CHIEF OF SAFETY AND PROTECTION 08/23/2013 Nurse visit Daina Irwin CHIEF OF SAFETY AND PROTECTION 06/02/2013 Nurse visit Sumi Elise MD 03/10/2013 Nurse visit Daina Irwin CHIEF OF SAFETY AND PROTECTION 02/28/2013 Office visit Daina Irwin CHIEF OF SAFETY AND PROTECTION 01/29/2012 Office visit Sumi Elise MD 05/28/2011 Voided Sumi Elise MD 11/27/2010 Office visit Sumi Elise MD 06/04/2010 Office visit Sumi Elise MD 05/02/2010 [facility] Sumi Elise MD 04/29/2010 Office visit Sumi Elise MD 04/18/2010 Office visit Sumi Elise MD 04/18/2010 [facility] Sumi Elise MD 04/04/2010 Office visit Sumi Elise MD 03/21/2010 Office visit Sumi Elise MD 03/07/2010 Office visit Sumi Elise MD 02/11/2010 Office visit Sumi Elise MD 01/28/2010 Procedures Sumi Elise MD 01/15/2010 Office visit Sumi Elise MD 12/12/2009 Office visit Sumi Elise MD 11/27/2009 Office visit Sumi Elise MD
--- OUTSIDE RECORDS SUMMARY | 2017-05-12 16:27 | XMS REPORT ---
Author Author Daina Irwin [facility] Address [address] [place], [place] [phone] Care Team Providers Care Optical Instrument Repairer Name Role Phone Daina Irwin PCP Unavailable Allergies and Adverse Reactions Name Reaction Notes NO KNOWN DRUG ALLERGIES Plan of Treatment Planned Activity Comments Planned Date Planned Time Plan/Goal Transabdominal / Transvaginal US (non-OB) 12/17/2016 12:00 AM Transabdominal / Transvaginal US (non-OB) 12/17/2016 12:00 AM Medications Active Name Start [...] 159.25 lbs 66 in 25.7034 kg/m 1.8341 05/28/2011 5:09:00 PM 110 mmHg 71 mmHg [...] Vaginal yeast infection Sep 10 2016 8:59AM Acute pain in female pelvis Dec 17 2016 8:45AM Pelvic mass in female Dec 17 2016 8:45AM Payers Insurance Name Company Name Plan Name Plan Number Policy Number Policy Group Number Start Date BCBS [employer] [place] [id number] N/A [place] Medical Assistance [facility] Medical Assistance Prog [id number] N/A [facility] [id number] N/A [facility] [employer] [id number] N/A [facility] CoreSource [employer]Source [id number] N/A History of Encounters Visit Date Visit Type Provider 12/16/2016 Office visit Daina Irwin MANAGER CUSTOMER 09/10/2016 Office visit Daina Irwin MANAGER CUSTOMER 08/28/[address] Lita Hines MD 08/09/2015 Surgery DYLAN AMINATA MAYA 08/01/[address] Lita Hines MD 07/25/[address] Lita Hines MD 06/27/[address] Lita Hines MD 06/12/2015 Office visit Daina Irwin MANAGER CUSTOMER 11/02/[address] MARIELOS ROMO MD 10/09/2014 Office visit Daina Irwin MANAGER CUSTOMER 07/06/2014 Office visit Daina Irwin MANAGER CUSTOMER 04/10/2014 Procedures Sumi Elise MD 03/01/2014 Office visit Daina Irwin MANAGER CUSTOMER 11/17/2013 Office visit Daina Irwin MANAGER CUSTOMER 08/23/2013 Nurse visit Daina Irwin MANAGER CUSTOMER 06/02/2013 Nurse visit Sumi Elise MD 03/10/2013 Nurse visit Daina Irwin MANAGER CUSTOMER 02/28/2013 Office visit Daina Irwin MANAGER CUSTOMER 01/29/2012 Office visit Sumi Elise MD 05/28/2011 Voided Sumi Elise MD 11/27/2010 Office visit Sumi Elise MD 06/04/2010 Office visit Sumi Elise MD 05/02/2010 [facility] Sumi Elise MD 04/29/2010 Office visit Sumi Elise MD 04/18/2010 [facility] Sumi Elise MD 04/18/2010 Office [...]
--- OUTSIDE RECORDS SUMMARY | 2017-05-12 16:28 | XMS REPORT ---
Author Author Daina Irwin [facility] Address [address] [place], [place] [phone] Care Team Providers Care Office Technician Name Role Phone Daina Irwin PCP Unavailable Allergies and Adverse Reactions Name Reaction Notes NO KNOWN DRUG ALLERGIES Plan of Treatment Planned Activity Comments Planned Date Planned Time Plan/Goal Transabdominal / Transvaginal US (non-OB) 12/17/2016 12:00 AM Transabdominal / Transvaginal US (non-OB) 12/17/2016 12:00 AM Complete obstetrical ultrasound at less than 14 weeks gestation 12/17/2016 12:00 AM [...] Group Number Start Date BCBS [employer] [place] [id number] N/A [place] Medical Assistance Program [place] Medical [place] Prog [id number] N/A [facility] Children[facility] [id number] N/A [facility] [employer] [id number] N/A [facility] CoreSource [employer]Source [id number] N/A History of Encounters Visit Date Visit Type Provider 12/16/2016 Office visit Daina Irwin CURTAIN CUTTER HAND 09/10/2016 Office visit Daina Irwin CURTAIN CUTTER HAND 08/28/[address] Lita Hines MD 08/09/2015 Surgery DYLAN AMINATA MAYA 08/01/[address] [facility] [address] Lita Hines MD 07/25/[address] Lita Hines MD 06/27/[address] Lita Hines MD 06/12/2015 Office visit Daina Irwin CURTAIN CUTTER HAND 11/02/[address] MARIELOS ROMO MD 10/09/2014 Office visit Daina Irwin CURTAIN CUTTER HAND 07/06/2014 Office visit Daina Irwin CURTAIN CUTTER HAND 04/10/2014 Procedures Sumi Elise MD 03/01/2014 Office visit Daina Irwin CURTAIN CUTTER HAND 11/17/2013 Office visit Daina Irwin CURTAIN CUTTER HAND 08/23/2013 Nurse visit Daina Irwin CURTAIN CUTTER HAND 06/02/2013 Nurse visit Sumi Elise MD 03/10/2013 Nurse visit Daina Irwin CURTAIN CUTTER HAND 02/28/2013 Office visit Daina Irwin CURTAIN CUTTER HAND 01/29/2012 Office visit Sumi Elise MD 05/28/2011 Voided Sumi Elise MD 11/27/2010 Office visit Sumi Elise MD 06/04/2010 Office visit Sumi Elise MD 05/02/2010 [facility] Sumi Elise MD 04/29/2010 Office visit Sumi Elise MD 04/18/2010 [facility] Sumi Elise MD 04/18/2010 Office visit Sumi Elise MD 04/04/2010 Office visit Sumi Elise MD 03/21/2010 Office visit Sumi Elise MD 03/07/2010 Office visit Sumi Elise MD 02/11/2010 Office visit Sumi Elise MD 01/28/2010 Procedures Sumi Elise MD 01/15/2010 Office visit Sumi Elise MD 12/12/2009 Office visit Sumi Elise MD 11/27/2009 Office visit Sumi Elise MD
--- OUTSIDE RECORDS SUMMARY | 2017-05-12 16:29 | XMS REPORT ---
Author Author Daina Irwin [facility] Address [address] [place], [place] [address] Care Team Providers Care Business Planner Name Role Phone Daina Irwin PCP Unavailable Allergies and Adverse Reactions Name Reaction Notes NO KNOWN DRUG ALLERGIES Plan of Treatment Planned Activity Comments Planned Date Planned Time Plan/Goal Transabdominal / Transvaginal US (non-OB) 12/17/2016 12:00 AM Transabdominal / Transvaginal US (non-OB) 12/17/2016 12:00 AM Complete obstetrical ultrasound of single fetus at more than 14 weeks gestation 12/17/2016 12:00 AM US PELVIC NON-OB 12/18/2016 12:00 AM Medications Active Name Start Date [...] 163 lbs 66 in 26.3086 kg/m 1.8555 04/10/2014 1:37:00 PM 123 mmHg 70 mmHg [...] 9:03AM test positive Dec 17 2016 9:03AM Adnexal tenderness, right Dec 16 2016 4:09PM Payers Insurance Name Company Name Plan Name Plan Number Policy Number Policy Group Number Start Date BCBS Bcbs [facility] [id number] N/A [place] Medical Assistance [facility] Prog [id number] N/A [facility] [id number] N/A [facility] [employer] [id number] N/A [facility] [id number] N/A History of Encounters Visit Date Visit Type Provider 12/16/2016 Office visit Daina Irwin CLINICAL PROGRAM CONSULTANT 09/10/2016 Office visit Daina Irwin CLINICAL PROGRAM CONSULTANT 08/28/[address] Lita Hines MD 08/09/2015 Surgery DYLAN COATES DO 08/01/[address] Lita Hines MD 07/25/[address] Lita Hines MD 06/27/[address] Lita Hines MD 06/12/2015 Office visit Daina Irwin CLINICAL PROGRAM CONSULTANT 11/02/[address] MARIELOS ROMO MD 10/09/2014 Office visit Daina Irwin CLINICAL PROGRAM CONSULTANT 07/06/2014 Office visit Daina Irwin CLINICAL PROGRAM CONSULTANT 04/10/2014 Procedures Sumi Elise MD 03/01/2014 Office visit Daina Irwin CLINICAL PROGRAM CONSULTANT 11/17/2013 Office visit Daina Irwin CLINICAL PROGRAM CONSULTANT 08/23/2013 Nurse visit Daina Irwin CLINICAL PROGRAM CONSULTANT 06/02/2013 Nurse visit Sumi Elise MD 03/10/2013 Nurse visit Daina Irwin CLINICAL PROGRAM CONSULTANT 02/28/2013 Office visit Daina Irwin CLINICAL PROGRAM CONSULTANT 01/29/2012 Office visit Sumi Elise MD 05/28/2011 Voided Sumi Elise MD 11/27/2010 Office visit Sumi Elise MD 06/04/2010 Office visit Sumi Elise MD 05/02/2010 [facility] Sumi Elise MD 04/29/2010 Office visit Sumi Elise MD 04/18/2010 [facility] Sumi Elise MD 04/18/2010 Office visit [...]
--- OUTSIDE RECORDS SUMMARY | 2017-05-12 16:29 | XMS REPORT ---
Author Author Daniela Mccullough [facility] Address [address] [place], [place] [address] Care Team Providers Care Director Of Physical Security Name Role Phone Daniela Mccullough PCP Unavailable [...] test, negative result Nov 02 2014 9:39AM Payers Insurance Name Company Name Plan Name Plan Number Policy Number Policy Group Number Start Date [facility] [employer]Source [facility] [id number] N/A [place] Medical Assistance [facility] Medical Assistance Pro [id number] N/A [facility] [id number] N/A [facility] [employer] [id number] N/A History of Encounters Visit Date Visit Type Provider 11/02/[address] Daniela Mccullough MD 10/09/2014 Office visit Daina Irwin DRUM HANDLER 07/06/2014 Office visit Daina Irwin DRUM HANDLER 04/10/2014 Procedures Sumi Elise MD 03/01/2014 Office visit Daina Irwin DRUM HANDLER 11/17/2013 Office visit Daina Irwin DRUM HANDLER 08/23/2013 Nurse visit Daina Irwin DRUM HANDLER 06/02/2013 Nurse visit Sumi Elise MD 03/10/2013 Nurse visit Daina Irwin DRUM HANDLER 02/28/2013 Office visit Daina Irwin DRUM HANDLER 01/29/2012 Office visit Sumi Elise MD 05/28/2011 [...]
--- OUTSIDE RECORDS SUMMARY | 2017-05-12 16:30 | XMS REPORT ---
Author Author Lita Hines [facility] Address [address] [place], [place] [address] Care Team Providers Care Program Engineer Name Role Phone Lita Hines PCP Unavailable [...] Policy Number Policy Group Number Start Date [facility] [place] [id number] N/A [place] Medical Assistance [facility] Medical Assistance Pro [id number] N/A [facility] [id number] N/A [facility] [employer] [id number] N/A History of Encounters Visit Date Visit Type Provider 06/27/[address] Lita Hines MD 06/12/2015 Office visit Daina Irwin CHAIR CAR DRIVER 11/02/[address] MARIELOS ROMO MD 10/09/2014 Office visit Daina Irwin CHAIR CAR DRIVER 07/06/2014 Office visit Daina Irwin CHAIR CAR DRIVER 04/10/2014 Procedures Suim Elise MD 03/01/2014 Office visit Daina Irwin CHAIR CAR DRIVER 11/17/2013 Office visit Daina Irwin CHAIR CAR DRIVER 08/23/2013 Nurse visit Daina Irwin CHAIR CAR DRIVER 06/02/2013 Nurse visit Sumi Elise MD 03/10/2013 Nurse visit Daina Irwin CHAIR CAR DRIVER 02/28/2013 Office visit Daina Irwin CHAIR CAR DRIVER 01/29/2012 Office visit Sumi Elise MD 05/28/2011 Voided Sumi Elise MD 11/27/2010 Office visit Sumi Elise MD 06/04/2010 Office visit Sumi Elise MD 05/02/2010 [facility] Sumi Elise MD 04/29/2010 Office visit Sumi Elise MD 04/18/2010 [facility] Sumi Elise MD 04/18/2010 Office visit [...]
--- OUTSIDE RECORDS SUMMARY | 2017-05-12 16:31 | XMS REPORT ---
Author Author Daina Irwin [facility] Address [address] [place], [place] [address] Care Team Providers Care Agricultural Equipment Salesperson Name Role Phone Daina Irwin PCP Unavailable [...] Active 07/06/2014 Vital Signs Date Time BP-Sys(mm[Hg] BP-Kaylni(mm[Hg]) HR(bpm) RR(rpm) Temp WT HT HC BMI [...] Group Number Start Date BCBS [employer]bs [employer] [place] [id number] N/A [place] Medical Assistance Program [place] Medical Assistance Prog [id number] N/A [facility] Childrens [facility] [id number] N/A [facility] Armed Forces [id number] N/A [facility] [employer]Source [employer]Source [id number] N/A History of Encounters Visit Date Visit Type Provider 12/16/2016 Office visit Daina Irwin STRATEGY LEAD 09/10/2016 Office visit Daina Irwin STRATEGY LEAD 08/28/[address] Lita Hines MD 08/09/2015 Surgery DYLAN COATES DO 08/01/[address] [facility] Dr[address] Lita Hines MD 07/25/[address] Lita Hines MD 06/27/[address] Lita Hines MD 06/12/2015 Office visit Daina Irwin STRATEGY LEAD 11/02/[address] MARIELOS ROMO MD 10/09/2014 Office visit Daina Irwin STRATEGY LEAD 07/06/2014 Office visit Daina Irwin STRATEGY LEAD 04/10/2014 Procedures Sumi Elise MD 03/01/2014 Office visit Daina Irwin STRATEGY LEAD 11/17/2013 Office visit Daina Irwin STRATEGY LEAD 08/23/2013 Nurse visit Daina Irwin STRATEGY LEAD 06/02/2013 Nurse visit Sumi Elise MD 03/10/2013 Nurse visit Daina Irwin STRATEGY LEAD 02/28/2013 Office visit Daina Irwin STRATEGY LEAD 01/29/2012 Office visit Sumi Elise MD 05/28/2011 Voided Sumi Elise MD 11/27/2010 Office visit Sumi Elise MD 06/04/2010 Office visit Sumi Elise MD 05/02/2010 [facility] Sumi Elise MD 04/29/2010 Office visit Sumi Elise MD 04/18/2010 [facility] Sumi Elise MD 04/18/2010 Office visit [...]
--- OUTSIDE RECORDS SUMMARY | 2017-05-12 16:31 | XMS REPORT ---
Author Author Jose Acosta [facility] Address [address] [place], [place] [address] Care Team Providers Care Servicer Travel Trailers Name Role Phone Jose Acosta PCP Unavailable Allergies and Adverse Reactions Name Reaction Notes NO KNOWN DRUG ALLERGIES Plan of Treatment Planned Activity Comments Planned Date Planned Time Plan/Goal Transabdominal / Transvaginal US (non-OB) 12/17/2016 12:00 AM Transabdominal / Transvaginal US (non-OB) 12/17/2016 12:00 AM US PELVIC NON-OB 12/18/2016 12:00 AM Medications Active Name Start Date Estimated Completion Date SIG Comments lorazepam 0.5 mg oral tablet Name Start Date Expiration Date SIG Comments [...] 2 times per day for 7 days Camrese 0.15 mg-30 mcg (84)/10 mcg (7) oral tablets,dose pack,3 month 201609/05/2017 TAKE ONE TABLET BY MOUTH ONCE DAILY for 90 days Diflucan 150 mg oral tablet 09/10/2016 09/11/2016 take 1 tablet (150 mg) by oral route once for 1 day meloxicam 15 mg oral tablet take 1 tablet (15 mg) by oral route once daily Discontinued Name Start Date Discontinued Date SIG [...] HC BMI BSA BMI Percentile O2 Sat(%) 12/23/2016 3:41:00 PM 125 mmHg 69 mmHg 79 bpm 98.4 F 175 lbs 66 in 28.25 kg/m2 1.92 m2 12/16/2016 4:06:00 PM 111 mmHg 67 mmHg [...] 12:00 AM CYTOPATH C/V THIN LAYER Reviewed 12/17/2016 12:00 AM OB US >/=14 WKS SNGL FETUS Returned 01/29/2012 12:00 AM CYTOPATH C/V MANUAL Reviewed [...] Group Number Start Date BCBS [employer] [place] [id number] N/A [place] Medical Assistance [facility] Prog [id number] N/A [facility] [id number] N/A [facility] [employer] [id number] N/A [facility] [id number] N/A History of Encounters Visit Date Visit Type Provider 12/23/2016 Office visit Jose Acosta MD 12/16/2016 Office visit Daina Irwin SHAREHOLDER 09/10/2016 Office visit Daina Irwin SHAREHOLDER 08/28/[address] Lita Hines MD 08/09/2015 Surgery DYLAN COATES DO 08/01/[address] Lita Hines MD 07/25/[address] Lita Hines MD 06/27/[address] Lita Hines MD 06/12/2015 Office visit Daina Irwin SHAREHOLDER 11/02/[address] MARIELOS ROMO MD 10/09/2014 Office visit Daina Irwin SHAREHOLDER 07/06/2014 Office visit Daina Irwin SHAREHOLDER 04/10/2014 Procedures Sumi Elise MD 03/01/2014 Office visit Daina Irwin SHAREHOLDER 11/17/2013 Office visit Daina Irwin SHAREHOLDER 08/23/2013 Nurse visit Daina Irwin SHAREHOLDER 06/02/2013 Nurse visit Sumi Elise MD 03/10/2013 Nurse visit Daina Irwin SHAREHOLDER 02/28/2013 Office visit Daina Irwin SHAREHOLDER 01/29/2012 Office visit Sumi Elise MD 05/28/2011 [...]
--- OUTSIDE RECORDS SUMMARY | 2017-05-12 16:32 | XMS REPORT ---
Author Author Jean Hassan [facility] Address [address] [place], [place] [phone] Care Team Providers Care Roller Stainer Name Role Phone Jean Hassan PCP Allergies and Adverse Reactions Name Reaction Notes NO KNOWN DRUG ALLERGIES Plan of Treatment Not available. Medications Active Name Start Date Estimated Completion Date SIG Comments meloxicam oral Camrese 0.15 mg-30 mcg (84)/10 mcg (7) oral tablets,dose pack,3 month 2015 TAKE ONE TABLET BY MOUTH ONCE DAILY Name Start Date Expiration Date SIG Comments [...] oral route once daily for 84 days Discontinued Name Start Date Discontinued Date [...] 165 lbs 66 in 26.6314 kg/m 1.8669 01/29/2012 4:58:00 PM 109 mmHg 66 mmHg [...] Policy Number Policy Group Number Start Date [facility] [employer] [facility] [employer] [id number] N/A [place] Medical Assistance Program [place] Medical [place] Pro [id number] N/A [facility] [id number] N/A [facility] [employer] [id number] N/A History of Encounters Visit Date Visit Type Provider 11/02/[address] MARIELOS ROMO MD 10/09/2014 Office visit Daina Irwin RESIDENTIAL APPRAISER 07/06/2014 Office visit Daina Irwin RESIDENTIAL APPRAISER 04/10/2014 Procedures Sumi Elise MD 03/01/2014 Office visit Daina Irwin RESIDENTIAL APPRAISER 11/17/2013 Office visit Daina Irwin RESIDENTIAL APPRAISER 08/23/2013 Nurse visit Daina Irwin RESIDENTIAL APPRAISER 06/02/2013 Nurse visit Sumi Elise MD 03/10/2013 Nurse visit Daina Irwin RESIDENTIAL APPRAISER 02/28/2013 Office visit Daina Irwin RESIDENTIAL APPRAISER 01/29/2012 Office visit Sumi Elise MD 05/28/2011 Voided Sumi Elise MD 11/27/2010 Office visit Sumi Elise MD 06/04/2010 Office visit Sumi Elise MD 05/02/2010 [facility] Sumi Elise MD 04/29/2010 Office visit Sumi Elise MD 04/18/2010 [facility] Sumi Elise MD 04/18/2010 Office visit Sumi Elise MD 04/04/2010 Office visit Sumi Elise MD 03/21/2010 Office visit Sumi Elise MD 03/07/2010 Office visit Sumi Elise MD 02/11/2010 Office visit Sumi Elise MD 01/28/2010 Procedures Sumi Elise MD 01/15/2010 Office visit Sumi Elise MD 12/12/2009 Office visit Sumi Elise MD 11/27/2009 Office visit Sumi Elise MD
--- OUTSIDE RECORDS SUMMARY | 2017-05-12 16:33 | XMS REPORT ---
Author Author Daina Irwin [facility] Address [address] [place], [place] [id number] Care Team Providers Care Straightening Machine Feeder Name Role Phone Daina Irwin PCP Unavailable Allergies and Adverse Reactions Name Reaction Notes NO KNOWN DRUG ALLERGIES Plan of Treatment Planned Activity Comments Planned Date Planned Time Plan/Goal Pap smear auto thin prep w manual MD screen 09/10/2016 12:00 AM Medications Active Name Start Date Estimated Completion Date SIG Comments lorazepam 0.5 mg oral tablet Camrese 0.15 mg-30 mcg (84)/10 mcg (7) oral tablets,dose pack,3 month 201609/05/2017 TAKE ONE TABLET BY MOUTH ONCE DAILY for 90 days Diflucan 150 mg oral tablet 09/10/2016 09/11/2016 take 1 tablet (150 mg) by oral route once for 1 day Name Start Date Expiration Date SIG Comments [...] HC BMI BSA BMI Percentile O2 Sat(%) 09/10/2016 8:55:00 AM 108 mmHg 73 mmHg 69 bpm 97.6 F 163 lbs 66 in 26.31 kg/m2 1.86 m2 08/28/2015 11:47:00 AM 131 mmHg 77 mmHg 71 bpm 97.8 F 166 lbs 66 in 26.7928 kg/m 1.8725 m 08/09/2015 1:31:00 PM 109 mmHg 71 mmHg 71 bpm 97.8 F 167.5 lbs 66 in 27.03 kg/m2 1.88 m2 07/25/2015 2:14:00 PM 120 mmHg 79 mmHg 82 bpm 98.1 F 167 lbs 66 in 26.9542 kg/m 1.8781 m 06/27/2015 3:40:00 PM 123 mmHg 67 mmHg [...] 12:00 AM Type & Screen (PREOP) Reviewed 01/29/2012 12:00 AM CYTOPATH C/V MANUAL [...] TRICHOMONAS NEGATIVE YEAST NEGATIVE CULT ORDERED YES SMALL 11/27/2009 1:32 PM RUBELLA 20.0 IU/mLWBC 7.9 [...] 0.03 #BASO 0.01 MANUAL DIFF NOT IND 04/18/2010 10:34 AM URIC ACID 4.5 mg/dLLDH 151.0 IU/LWBC 8.8 RBC 3.85 HGB 11.80 g/dLHCT 36.0 %MCV 94.0 fLMCH 30.60 pgMCHC 32.80 g/dLRDW SD 47 RDW CV 13.80 %MPV 11.60 fLPLT 214 NRBC# 0.00 NRBC% 0.0 %NEUT 78.70 %%LYMP 14.0 %%MONO 6.90 %%EOS 0.30 %%BASO 0.10 %#NEUT 6.91 #LYMP 1.23 #MONO 0.61 #EOS 0.03 #BASO 0.01 MANUAL DIFF NOT IND GLUCOSE 106.0 mg/dLSODIUM 134.0 mmol/LPOTASSIUM 3.90 mmol/LCHLORIDE 104.0 mmol/LCO2 21.0 mmol/LBUN 9.0 mg/dLCREATININE 0.70 mg/dLSGOT /AST 18.0 IU/LSGPT/ALT 11.0 IU/LALK PHOS 122.0 IU/LTOTAL PROTEIN 6.80 g/ dLALBUMIN 3.30 g/dLTOTAL BILI 0.30 mg/dLCALCIUM 9.60 mg/dLAGE 24 GFR NonAA 103 GFR AA 125 eGFR >60 mL/min/1.73 m2eGFR AA* >60 04/19/2010 5:20 PM TOTAL VOLUME 1675 PROTEIN UR 10.0 mg/dLPROTEIN UR 24H 168.0 mg/24 hr 05/02/2010 12:45 PM WBC 9.5 RBC 3.77 HGB 11.60 g/dLHCT 35.50 %MCV 94.0 fLMCH 30.80 pgMCHC 32.70 g/dLRDW SD 47 RDW CV 13.90 %MPV 12.30 fLPLT 210 NRBC# 0.00 NRBC% 0.0 %NEUT 80.80 %%LYMP 13.60 %%MONO 5.30 %%EOS 0.20 %%BASO 0.10 %#NEUT 7.64 #LYMP 1.29 #MONO 0.50 #EOS 0.02 #BASO 0.01 MANUAL DIFF NOT IND 11/17/2013 [...] 0.02 MANUAL DIFF NOT IND TEST NEGATIVE 08/01/2015 7:19 AM TEST UR NEGATIVE History [...] Vaginal yeast infection Sep 10 2016 8:59AM Payers Insurance Name Company Name Plan Name Plan Number Policy Number Policy Group Number Start Date BCBS [facility] [id number] N/A [place] Medical Assistance [facility] Prog [id number] N/A [facility] [id number] N/A [facility] [employer] [id number] N/A [facility] [employer] [id number] N/A History of Encounters Visit Date Visit Type Provider 09/10/2016 Office visit Daina Irwin MORTGAGE LOAN FUNDER 08/28/[address] Lita Hines MD 08/09/2015 Surgery DYLAN COATES DO 08/01/[address] Lita Hines MD 07/25/[address] Lita Hines MD 06/27/[address] Lita Hines MD 06/12/2015 Office visit Daina Irwin MORTGAGE LOAN FUNDER 11/02/[address] MARIELOS ROMO MD 10/09/2014 Office visit Daina Irwin MORTGAGE LOAN FUNDER 07/06/2014 Office visit Daina Irwin MORTGAGE LOAN FUNDER 04/10/2014 Procedures Sumi Elise MD 03/01/2014 Office visit Daina MArlene Irwin MORTGAGE LOAN FUNDER 11/17/2013 Office visit Daina M. Dc MORTGAGE LOAN FUNDER 08/23/2013 Nurse visit Daina MArlene Irwin MORTGAGE LOAN FUNDER 06/02/2013 Nurse visit Sumi Elise MD 03/10/2013 Nurse visit Daina M. Dc MORTGAGE LOAN FUNDER 02/28/2013 Office visit Daina EdinArlene Irwin MORTGAGE LOAN FUNDER 01/29/2012 Office visit Sumi Elise MD 05/28/2011 Voided Sumi Elise MD 11/27/2010 Office visit Sumi Elise MD 06/04/2010 Office visit Sumi Elise MD 05/02/2010 [facility] Sumi Elise MD 04/29/2010 Office visit Sumi Elise MD 04/18/2010 [facility] Sumi Elise MD 04/18/2010 Office visit Sumi Elise MD 04/04/2010 Office visit Sumi Elise MD 03/21/2010 Office visit Sumi Elise MD 03/07/2010 Office visit Sumi Elise MD 02/11/2010 Office visit Sumi Elise MD 01/28/2010 Procedures Sumi Elise MD 01/15/2010 Office visit Sumi Elise MD 12/12/2009 Office visit Sumi Elise MD 11/27/2009 Office visit Sumi Elise MD
--- OUTSIDE RECORDS SUMMARY | 2017-05-12 16:34 | XMS REPORT ---
Author Author Jose Acosta [facility] Address [address] [place], [place] [address] Care Team Providers Care Briefcase Sewer Name Role Phone Jose Acosta PCP Unavailable [...] Adnexal tenderness, right Dec 16 2016 4:09PM test positive Dec 23 2016 3:42PM Payers Insurance Name Company Name Plan Name Plan Number Policy Number Policy Group Number Start Date BCBS [facility] [id number] N/A [place] Medical Assistance [facility] Medical Assistance Pro [id number] N/A [facility] [id number] N/A [facility] Armed Forces [id number] N/A [facility] [id number] N/A History of Encounters Visit Date Visit Type Provider 12/23/2016 Office visit Jose Acosta MD 12/16/2016 Office visit Daina Irwin HISTORY DEPARTMENT CHAIR 09/10/2016 Office visit Daina Irwin HISTORY DEPARTMENT CHAIR 08/28/[address] Lita Hines MD 08/09/2015 Surgery DYLAN COATES DO 08/01/[address] Lita Hines MD 07/25/[address] Lita Hines MD 06/27/[address] Lita Hines MD 06/12/2015 Office visit Daina Irwin HISTORY DEPARTMENT CHAIR 11/02/[address] MARIELOS ROMO MD 10/09/2014 Office visit Daina Irwin HISTORY DEPARTMENT CHAIR 07/06/2014 Office visit Daina Irwin HISTORY DEPARTMENT CHAIR 04/10/2014 Procedures Sumi Elise MD 03/01/2014 Office visit Daina Irwin HISTORY DEPARTMENT CHAIR 11/17/2013 Office visit Daina Irwin HISTORY DEPARTMENT CHAIR 08/23/2013 Nurse visit Daina Irwin HISTORY DEPARTMENT CHAIR 06/02/2013 Nurse visit Sumi Elise MD 03/10/2013 Nurse visit Daina Irwin HISTORY DEPARTMENT CHAIR 02/28/2013 Office visit Daina Irwin HISTORY DEPARTMENT CHAIR 01/29/2012 Office visit Sumi Elise MD 05/28/2011 [...]
--- OUTSIDE RECORDS SUMMARY | 2017-05-12 16:34 | XMS REPORT ---
Author Author Lita Hines [facility] Address [address] [place], [place] [address] Care Team Providers Care Door Furring Installer Name Role Phone Lita Hines PCP Unavailable [...] Returned 06/27/2015 4:02 PM URINE TEST Reviewed 01/29/2012 12:00 AM CYTOPATH C/V MANUAL [...] test, result negative Jun 27 2015 4:02PM Payers Insurance Name Company Name Plan Name Plan Number Policy Number Policy Group Number Start Date [facility] [id number] N/A [place] Medical Assistance Program [facility] [id number] N/A [facility] [id number] N/A [facility] Armed Forces [id number] N/A History of Encounters Visit Date Visit Type Provider 06/27/[address] Lita Hines MD 06/12/2015 Office visit Daina Irwin ASSISTANT MEN'S LACROSSE COACH 11/02/[address] MARIELOS ROMO MD 10/09/2014 Office visit Daina Irwin ASSISTANT MEN'S LACROSSE COACH 07/06/2014 Office visit Daina Irwin ASSISTANT MEN'S LACROSSE COACH 04/10/2014 Procedures Sumi Elise MD 03/01/2014 Office visit Daina Irwin ASSISTANT MEN'S LACROSSE COACH 11/17/2013 Office visit Daina Irwin ASSISTANT MEN'S LACROSSE COACH 08/23/2013 Nurse visit Daina Irwin ASSISTANT MEN'S LACROSSE COACH 06/02/2013 Nurse visit Sumi Elise MD 03/10/2013 Nurse visit Daina Irwin ASSISTANT MEN'S LACROSSE COACH 02/28/2013 Office visit Daina Irwin ASSISTANT MEN'S LACROSSE COACH 01/29/2012 Office visit Sumi Elise MD 05/28/2011 [...]
--- OUTSIDE RECORDS SUMMARY | 2017-05-12 16:35 | XMS REPORT ---
Author Author Daina Irwin [facility] Address [address] [place], [place] [phone] Care Team Providers Care Data Security Analyst Name Role Phone Daina Irwin PCP Unavailable Allergies and Adverse Reactions Name Reaction Notes NO KNOWN DRUG ALLERGIES Plan of Treatment Planned Activity Comments Planned Date Planned Time Plan/Goal CYTOPATH C/V THIN LAYER 06/12/2015 12:00 AM Medications Active Name Start Date Estimated Completion Date SIG Comments meloxicam oral lorazepam 0.5 mg oral tablet Diflucan 150 mg oral tablet 06/12/2015 06/13/2015 [...] HC BMI BSA BMI Percentile O2 Sat(%) 06/12/2015 3:14:00 PM 125 mmHg 66 mmHg [...] 3:19PM Vaginal Discharge Jun 12 2015 3:19PM Payers Insurance Name Company Name Plan Name Plan Number Policy Number Policy Group Number Start Date [facility] [employer] [id number] N/A [place] Medical Assistance Program [place] Medical Assistance Prog [id number] N/A [facility] [id number] N/A [facility] Armed [employer] [id number] N/A History of Encounters Visit Date Visit Type Provider 06/12/2015 Office visit Daina Irwin CATEGORY DEVELOPMENT MANAGER 11/02/[address] MARIELOS ROMO MD 10/09/2014 Office visit Daina Irwin CATEGORY DEVELOPMENT MANAGER 07/06/2014 Office visit Daina Bolaños Dc CATEGORY DEVELOPMENT MANAGER 04/10/2014 Procedures Sumi Elise MD 03/01/2014 Office visit Daina Irwin CATEGORY DEVELOPMENT MANAGER 11/17/2013 Office visit Daina Irwin CATEGORY DEVELOPMENT MANAGER 08/23/2013 Nurse visit Daina Irwin CATEGORY DEVELOPMENT MANAGER 06/02/2013 Nurse visit Sumi Elise MD 03/10/2013 Nurse visit Daina Bolaños Irwin CATEGORY DEVELOPMENT MANAGER 02/28/2013 Office visit Daina Irwin CATEGORY DEVELOPMENT MANAGER 01/29/2012 Office visit Sumi Elise MD 05/28/2011 Voided Sumi Elise MD 11/27/2010 Office visit Sumi Elise MD 06/04/2010 Office visit Sumi Elise MD 05/02/2010 [facility] Sumi Elise MD 04/29/2010 Office visit Sumi Elise MD 04/18/2010 [facility] Sumi Elise MD 04/18/2010 Office visit [...]
--- OUTSIDE RECORDS SUMMARY | 2017-05-12 16:36 | XMS REPORT ---
Author Author Lita Hines [facility] Address [address] [place], [place] [address] Care Team Providers Care Package Reinspector Name Role Phone Lita Hines PCP Unavailable [...] 2 times per day for 7 days Name Start Date Expiration Date SIG [...] HC BMI BSA BMI Percentile O2 Sat(%) 08/28/2015 11:47:00 AM 131 mmHg 77 mmHg [...] intraepithelial neoplasia II) Aug 28 2015 11:49AM Payers Insurance Name Company Name Plan Name Plan Number Policy Number Policy Group Number Start Date [facility] [employer] [id number] N/A [place] Medical Assistance Program [place] Medical Assistance Prog [id number] N/A [facility] [id number] N/A [facility] [employer] [id number] N/A History of Encounters Visit Date Visit Type Provider 08/28/[address] Lita Hines MD 08/09/2015 Surgery DYLAN VO 08/01/[address] [facility] [address] Lita Hines MD 07/25/[address] Lita Hines MD 06/27/[address] Lita Hines MD 06/12/2015 Office visit Daina Irwin BLOCK GREASER 11/02/[address] MARIELOS ROMO MD 10/09/2014 Office visit Daina Irwin BLOCK GREASER 07/06/2014 Office visit Daina Irwin BLOCK GREASER 04/10/2014 Procedures Sumi Elise MD 03/01/2014 Office visit Daina Irwin BLOCK GREASER 11/17/2013 Office visit Daina Irwin BLOCK GREASER 08/23/2013 Nurse visit Daina Irwin BLOCK GREASER 06/02/2013 Nurse visit Sumi Elise MD 03/10/2013 Nurse visit Daina Irwin BLOCK GREASER 02/28/2013 Office visit Daina Irwin BLOCK GREASER 01/29/2012 Office visit Sumi Elise MD 05/28/2011 Voided Sumi Elise MD 11/27/2010 Office visit Sumi Elise MD 06/04/2010 Office visit Sumi Elise MD 05/02/2010 [facility] Sumi Elise MD 04/29/2010 Office visit Sumi Elise MD 04/18/2010 [facility] Sumi Elise MD 04/18/2010 Office [...]
--- OUTSIDE RECORDS SUMMARY | 2017-05-12 16:37 | XMS REPORT ---
Author Author Lita Hines [facility] Address [address] [place], [place] [address] Care Team Providers Care Ticket Seller Name Role Phone Lita Hines PCP Unavailable [...] 12:00 AM BX/CURETT OF CERVIX W/SCOPE Reviewed 01/29/2012 12:00 AM CYTOPATH C/V MANUAL [...] Policy Number Policy Group Number Start Date [facility] Luis Albertosurgical specialty centergerald [place] [id number] N/A [place] Medical Assistance [facility] Medical Assistance Pro [id number] N/A [facility] [id number] N/A [facility] [employer] [id number] N/A History of Encounters Visit Date Visit Type Provider 06/27/[address] Lita Hines MD 06/12/2015 Office visit Daina Irwin MEDICINE TEACHER 11/02/[address] MARIELOS ROMO MD 10/09/2014 Office visit Daina Irwin MEDICINE TEACHER 07/06/2014 Office visit Daina Irwin MEDICINE TEACHER 04/10/2014 Procedures Sumi Elise MD 03/01/2014 Office visit Daina Irwin MEDICINE TEACHER 11/17/2013 Office visit Daina Irwin MEDICINE TEACHER 08/23/2013 Nurse visit Daina Irwin MEDICINE TEACHER 06/02/2013 Nurse visit Sumi Elise MD 03/10/2013 Nurse visit Daina Irwin MEDICINE TEACHER 02/28/2013 Office visit Daina Irwin MEDICINE TEACHER 01/29/2012 Office visit Sumi Elise MD 05/28/2011 Voided Sumi Elise MD 11/27/2010 Office visit Sumi Elise MD 06/04/2010 Office visit Sumi Elise MD 05/02/2010 [facility] Sumi Elise MD 04/29/2010 Office visit Sumi Elise MD 04/18/2010 [facility] Sumi Elise MD 04/18/2010 Office visit [...]
--- OUTSIDE RECORDS SUMMARY | 2017-05-12 16:38 | XMS REPORT | Continuity of Care Document ---
Author Author [facility] Organization [facility] Address Unknown Phone Unavailable Allergies There is no data. Medications There is no data. Problems There is no data. Procedures There is no data. Results There is no data. Encounters ACCT No. Visit Date/Time Discharge Status Pt. Type Provider Facility Loc./Unit Complaint [id number] 12/23/2016 16:27:59 12/23/2016 23:59:59 CLS Outpatient NancyManoj schusterernst [facility] [id number] 12/16/2016 17:20:37 12/16/2016 23:59:59 CLS Outpatient Daina Irwin [id number] 09/10/2016 09:41:57 09/10/2016 23:59:59 CLS Outpatient Daina Irwin [id number] 08/28/2015 12:42:31 08/28/2015 23:59:59 CLS Outpatient DonnyLita rios [id number] 11/02/2014 10:26:06 11/02/2014 23:59:59 CLS Outpatient Jean Hassan [id number] 10/09/2014 22:34:49 10/09/2014 23:59:59 CLS Outpatient Daina Irwin [id number] 07/06/2014 16:54:13 07/06/2014 23:59:59 CLS Outpatient Daina Irwin [id number] 04/10/2014 14:04:58 04/10/2014 23:59:59 CLS Outpatient Sumi Elise [id number] 03/01/2014 15:03:50 03/01/2014 23:59:59 CLS Outpatient Daina Irwin [id number] 11/17/2013 17:09:57 11/17/2013 23:59:59 CLS Outpatient Daina Irwin [id number] 08/23/2013 17:08:50 08/23/2013 23:59:59 CLS Outpatient Daina Irwin [id number] 06/02/2013 15:50:01 06/02/2013 23:59:59 CLS Outpatient Sumi Elise [id number] 03/10/2013 16:15:22 03/10/2013 23:59:59 CLS Outpatient Daina Irwin [id number] 02/28/2013 17:11:48 02/28/2013 23:59:59 CLS Outpatient Daina Irwin
--- OUTSIDE RECORDS SUMMARY | 2017-05-12 16:38 | XMS REPORT ---
Author Author Daina Irwin [facility] Address [address] [place], [place] [address] Care Team Providers Care Hearing Therapist Name Role Phone Daina Irwin PCP Unavailable [...] HC BMI BSA BMI Percentile O2 Sat(%) 10/09/2014 1:50:00 PM 113 mmHg 72 mmHg [...] AM COMPLETE CBC W/AUTO DIFF WBC Returned Results Summary Data and Description Results [...] 2.20 #MONO 0.30 #EOS 0.04 #BASO 0.02 History Of Immunizations Not available. History of [...] 2014 1:55PM Bruising Oct 09 2014 1:55PM Payers Insurance Name Company Name Plan Name Plan Number Policy Number Policy Group Number Start Date [facility] [id number] N/A [facility] Assistance [facility] [id number] N/A [facility] [id number] N/A [facility] [id number] N/A History of Encounters Visit Date Visit Type Provider 10/09/2014 Office visit Daina Irwin TEXTILE SCREEN MAKER 07/06/2014 Office visit Daina Irwin TEXTILE SCREEN MAKER 04/10/2014 Procedures Sumi Elise MD 03/01/2014 Office visit Daina Irwin TEXTILE SCREEN MAKER 11/17/2013 Office visit Daina Irwin TEXTILE SCREEN MAKER 08/23/2013 Nurse visit Daina Irwin TEXTILE SCREEN MAKER 06/02/2013 Nurse visit Sumi Elise MD 03/10/2013 Nurse visit Daina Irwin TEXTILE SCREEN MAKER 02/28/2013 Office visit Daina Irwin TEXTILE SCREEN MAKER 01/29/2012 Office visit Sumi Elise MD 05/28/2011 Voided Sumi Elise MD 11/27/2010 Office visit Sumi Elise MD 06/04/2010 Office visit Sumi Elise MD 05/02/2010 [facility] Sumi Elise MD 04/29/2010 Office visit Sumi Elise MD 04/18/2010 [facility] Sumi Elise MD 04/18/2010 Office visit [...]
--- OUTSIDE RECORDS SUMMARY | 2017-05-12 16:38 | XMS REPORT ---
Author Author Daina Irwin [facility] Address [address] [employer] [place] [employer], [place] [id number] Care Team Providers Care Rubber Goods Tester Name Role Phone Daina Irwin PCP Unavailable [...] 168 lbs 66 in 27.1156 kg/m 1.8838 11/17/2013 4:17:00 PM 122 mmHg 75 mmHg [...] TBS C/V MANUAL Reviewed 06/12/2015 12:00 AM CYTOPATH C/V THIN LAYER Returned 01/29/2012 12:00 AM CYTOPATH C/V MANUAL [...] Policy Number Policy Group Number Start Date [facility] [employer] [id number] N/A [place] [facility] [place] [facility] Prog [id number] N/A [facility] [id number] N/A [facility] [employer] [id number] N/A History of Encounters Visit Date Visit Type Provider 06/12/2015 Office visit Daina Irwin VIDEO NETWORK ENGINEER 11/02/[address] MARIELOS ROMO MD 10/09/2014 Office visit Daina Irwin VIDEO NETWORK ENGINEER 07/06/2014 Office visit Daina Bolaños Dc VIDEO NETWORK ENGINEER 04/10/2014 Procedures Sumi Elise MD 03/01/2014 Office visit Daina Bolaños Dc VIDEO NETWORK ENGINEER 11/17/2013 Office visit Daina Irwin VIDEO NETWORK ENGINEER 08/23/2013 Nurse visit Daina Irwin VIDEO NETWORK ENGINEER 06/02/2013 Nurse visit Sumi Elise MD 03/10/2013 Nurse visit Daina Bolaños Dc VIDEO NETWORK ENGINEER 02/28/2013 Office visit Daina M. Irwin VIDEO NETWORK ENGINEER 01/29/2012 Office visit Sumi Elise MD 05/28/2011 Voided Sumi Elise MD 11/27/2010 Office visit Sumi Elise MD 06/04/2010 Office visit Sumi Elise MD 05/02/2010 [facility] Sumi Elise MD 04/29/2010 Office visit Sumi Elise MD 04/18/2010 [facility] Sumi Elise MD 04/18/2010 Office [...]
[2017-05-12] MEDS ORDERED: D5 LR IV SOLUTION 1,000 ML IV SCH (16:41)
--- NOTE | 2017-05-12 16:49 | History & Physical-OB ---
OB - Chief Complaint & HPI Date/Time Date of Admission: Date of Admission: May 12, 2017 at 3:05 pm Time Seen by Provider: 15:00 Chief Complaint/History OB-Reason for Admission/Chief: Onset of Labor Hx : 2 Hx Para: 1 Expected Date of Delivery: May 27, 2017 Gestational Age in Weeks: 37 Gestational Age in Days: 6 Admission Nurse Assessment Rev: Yes History of Labs O pos Antibody neg RI RPR NR HBsAg NR HIV NR GC neg GBS neg Allergies and Home Medications Allergies Coded Allergies: No Known Drug Allergies (Unverified , 05/12/17) Patient Home Medication List Home Medication List Reviewed: Yes OB - History Hx of Present Care: Yes Ultrasounds: Normal mid trimester US Obstetrical Complications: None Medical Complications: None Patient Past Medical History n/a OB - Admission Exam Physical Exam HEENT: NCAT Heart: Rhythm Normal Lungs: Clear Abdomen: Gravid Extremities: Normal Reflexes: Normal Cervical Dilatation: 6cm Effacement: 75% Station: -1 Membranes: Intact Heart Rate: 130's Accelerations: Accelerations Present Decelerations: No Decelerations Short Term Variability: Present Intermodal Owner Operator Truck Driver Variability: Average (6-25) Contractions on Admission: < 5 Minutes Apart Intensity: Firm OB - Assessment/Plan/Diagnosis Assessment Assessment: active labor Admission Dx 37.6 active labor GBS neg Admission Status: Inpatient Order (span 2 midnights) Reason for Inpatient Admission: active labor Plan Plan: Expectant Management BONITA SALAS DO May 12, 2017 4:49 pm
[2017-05-12 16:56] LABS: BASOPHILS % (AUTO) 0 % (0-10); EOSINOPHILS % (AUTO) 0 % (0-10); HEMATOCRIT 36 % (35-52); HEMOGLOBIN 12.1 G/DL (11.5-16.0); LYMPHOCYTES # (AUTO) 1.5 X 10^3 (1.0-4.0); LYMPHOCYTES % (AUTO) 16 % (12-44); MEAN CORPUSCULAR HEMOGLOBIN 32 PG (25-34); MEAN CORPUSCULAR HGB CONC 34 G/DL (32-36); MEAN CORPUSCULAR VOLUME 94 FL (80-99); MEAN PLATELET VOLUME 11.7 FL (7.4-10.4); MONOCYTES # (AUTO) 0.7 X 10^3 (0.0-1.0); MONOCYTES % (AUTO) 7 % (0-12); NEUTROPHILS # (AUTO) 7.4 X 10^3 (1.8-7.8); NEUTROPHILS % (AUTO) 77 % (42-75); PLATELET COUNT 253 10^3/uL (130-400); RED BLOOD COUNT 3.78 10^6/uL (4.35-5.85); RED CELL DISTRIBUTION WIDTH 14.1 % (10.0-14.5); WHITE BLOOD COUNT 9.6 10^3/uL (4.3-11.0)
[2017-05-12] MEDS ORDERED: INFLUENZA TRIvalent 2017-2018 0.5 ML/45 MCG SYR IM ONE (18:00)
[2017-05-12] MEDS ORDERED: OXYTOCIN/NORMAL SALINE 500 ML IV ONE (19:56)
[2017-05-12] MEDS ORDERED: SUFENTA 0.6MCG/ML BUPIVA 0.125 100 ML ONE (21:24)
[2017-05-12] MEDS ORDERED: LIDOCAINE PF 2% 5 ML (XYLOCAINE) VIAL ONE (22:00)
[2017-05-12] MEDS ORDERED: fentaNYL INJECTION 100 MCG/2 ML AMP ONE (22:00)
[2017-05-12] MEDS ORDERED: BUPIVACAINE 0.25% 30 ML (SENSORCAINE) VIAL ONE (22:00)
[2017-05-12] MEDS ORDERED: CATHETER FLUSH 10 ML SYR IV SCH (22:00)
[2017-05-12] MEDS ORDERED: LACTATED RINGERS 1,000 ML IV ONE ×2 (22:21)
[2017-05-12] MEDS ORDERED: ONDANSETRON 4 MG/2 ML (SDV) Z0FRAN IV PRN (22:30)
[2017-05-12] MEDS ORDERED: NALOXONE 0.4 MG/ML 1 ML (NARCAN) VIAL IV PRN (22:30)
[2017-05-12] MEDS ORDERED: EPIDURAL (SUFENTA 0.6MCG/ML BUPIVA 0.125%) 100 ML BAG EPI PRN (22:30)
[2017-05-12] MEDS ORDERED: LIDOCAINE/EPI 2% 1:200,00 (XYLOCAINE) 10 ML VIAL ONE (23:35)
[2017-05-12] MEDS: OXYTOCIN/NORMAL SALINE 500 ML IV SCH (23:53)
[2017-05-13] VITALS (11 sets, daily range): BP systolic 116–164; BP diastolic 57–81
--- NOTE | 2017-05-13 00:06 | OB Labor & Delivery Record ---
L&D History Date of Service Date of Service: May 13, 2017 History Expected Date of Delivery: May 27, 2017 Gestational Age in Weeks: 37 Hx : 2 Hx Para: 1 Complications Events: Routine care Operative Indications (Cesarea: N/A-Vaginal Delivery Intrapartal Events: None L&D Stage1 Stage One Onset of Labor - Date: May 12, 2017 Monitors and Tracing Monitor Mode: External Heart Rate: 135 Monitor Decelerations: Early Police Chief Deputy Variability: Average (6-10) Short Term Variability: Present Presentation: Vertex Vital Signs VS - Last 72 Hours, by Label 05/12/17 05/12/17 05/12/17 05/12/17 16:10 17:00 17:30 18:00 Temp 98.3 Pulse 90 83 90 96 Resp 20 20 20 20 B/P (MAP) 138/84 (102) 127/79 (95) 122/83 (96) 132/76 (94) O2 Delivery Room Air Room Air Room Air Room Air 05/12/17 05/12/17 05/12/17 05/12/17 19:26 19:57 20:28 20:56 Temp 98.2 Pulse 75 93 96 80 Resp 20 20 20 20 B/P (MAP) 128/76 (93) 127/74 (91) 108/84 (92) 128/71 (90) O2 Delivery Room Air Room Air Room Air Room Air 05/12/17 05/12/17 05/12/17 05/12/17 21:27 21:57 22:05 22:08 Temp 98.4 Pulse 78 82 89 89 Resp 18 20 20 20 B/P (MAP) 134/83 (100) 131/82 (98) 175/96 (122) 144/89 (107) Pulse Ox 98 99 99 O2 Delivery Room Air Room Air Room Air Room Air 05/12/17 05/12/17 05/12/17 05/12/17 22:11 22:14 22:17 22:20 Pulse 90 90 82 86 Resp 20 20 20 20 B/P (MAP) 146/77 (100) 147/92 (110) 125/75 (92) 133/73 (93) Pulse Ox 99 99 99 99 O2 Delivery Room Air Room Air Room Air Room Air 05/12/17 05/12/17 05/12/17 05/12/17 22:23 22:26 22:29 22:32 Temp 99.2 Pulse 85 81 86 99 Resp 20 20 20 20 B/P (MAP) 126/78 (94) 124/68 (86) 118/66 (83) 120/73 (89) Pulse Ox 97 99 98 98 O2 Delivery Room Air Room Air Room Air Room Air 05/12/17 05/12/17 05/12/17 05/12/17 22:35 22:38 22:40 22:45 Pulse 76 78 74 74 Resp 20 20 20 20 B/P (MAP) 124/69 (87) 120/68 (85) 119/68 (85) 119/69 (86) Pulse Ox 97 97 97 98 O2 Delivery Room Air Room Air Room Air Room Air 05/12/17 05/12/17 22:50 22:55 Pulse 75 80 Resp 20 20 B/P (MAP) 114/74 (87) 116/67 (83) Pulse Ox 98 98 O2 Delivery Room Air Room Air Rupture of Membranes Spontaneous Ruture of Membrane: No Amniotic Membrane Rupture Time: 21:15 Amniotic Membrane Fluid Desc.: Clear Vaginal Bleeding Description: Normal Show Induction/Anesthesia Epidural Cath Placement - Time: 22:00 L&D Stage2 Stage Two Stage II Date: May 12, 2017 Monitors and Tracing Monitor Mode: External Heart Rate: 135 Monitor Accelerations: None Monitor Decelerations: Variable Police Chief Deputy Variability: Average (6-10) Short Term Variability: Present Position: Right Occiput Anterior Presentation: Vertex Cord Descript/Complications Cord Vessel Description: 3 Vessels Delivery Type Infant Delivery Method: Spontaneous Vaginal Anterior Shoulder: Left Episiotomy/Perineal Laceration Laceraction(s)/Extensions: No Condition of Infant Delivery 1 minute Comment: 7 5 minute Comment: 9 Notes Live male weight 7lbs 12 oz Condition of Condition of : Living Exam: No Observed Abnormalities Resuscitation Resuscitation: N/A - Spontaneous Resp L&D Stage3 Stage Three Stage III Date: May 13, 2017 Pictocin Pitocin Administration mu/min: 30 Pitocin Administration Comment: 30 mu wide open at delivery of placenta Placenta Delivery Placenta Delivery: Spontaneous Delivery Summary Summary Estimated blood loss (mL): 250 Attending at delivery: Bonita Salas DO Condition of Delivery Examined: Cervix Examined, Uterus Explored Post Hemorrhage: No Condition of Mother stable Condition of Infant (s) stable BONITA SALAS DO May 13, 2017 12:06 am
--- NOTE | 2017-05-13 00:07 | Discharge Inst-Women's Service ---
Discharge Inst-Women's Serv Depart Medication/Instructions New, Converted or Re-Newed RX: RX on Chart Consults/Follow Up Additional Follow Up: Yes Orders/Referrals Dr. Salas in 6 weeks Activity Activity: Activity as Tolerated Driving Instructions: No Driving for 1 Week NO SMOKING: NO SMOKING Nothing Inside Vagina: No Douching, No Ceex Haci, No Tampons Diet Discharge Diet: No Restrictions Symptoms to Report to : Bleeding Excessive, Pain Increased, Fever Over 101 Degrees F, Vaginal Bleeding Increase, Questions/Concerns For Any Problems or Questions: Contact Your Physician Skin/Wound Care Bathing Instructions: Shower (x 2 weeks) BONITA SALAS DO May 13, 2017 12:07 am
[2017-05-13] MEDS ORDERED: DOCU100C37 PO (00:08)
[2017-05-13] MEDS ORDERED: FERR325T18 PO (00:08)
[2017-05-13] MEDS ORDERED: IBUP-1773 PO (00:08)
[2017-05-13] MEDS ORDERED: ACHD5005 PO (00:08)
[2017-05-13] MEDS ORDERED: HYDROcodone/APAP 5 MG/325 MG (LORTAB) TAB PO PRN (00:15)
[2017-05-13] MEDS ORDERED: BENZOCAINE/MENTHOL (DERMOPLAST) 56 ML CAN TP PRN (00:15)
[2017-05-13] MEDS ORDERED: MEASLES,MUMPS,RUBELLA 1 EA INJ SQ ONE (00:15)
[2017-05-13] MEDS ORDERED: WITCH HAZEL(TUCKS) 40 EA JAR TOP PRN (00:15)
[2017-05-13] MEDS ORDERED: TETANUS,DIPTH,PERTUSS P/F (BOOSTRIX) 0.5 ML VIAL IM ONE (00:15)
[2017-05-13] MEDS ORDERED: DIBUCAINE (NUPERCAINAL) 1% OINT 30 GM TOP PRN (00:15)
[2017-05-13] MEDS: OXYTOCIN/NORMAL SALINE 500 ML IV SCH (00:23)
[2017-05-13] MEDS: IBUPROFEN 600 MG (MOTRIN) TAB PO SCH ×4 (02:11→19:52)
[2017-05-13] MEDS ORDERED: CATHETER FLUSH 10 ML SYR IV SCH (06:00)
--- NOTE | 2017-05-13 08:26 | Postpartum Progress Note ---
Note Note Day # 1 Subjective: Patient is without complaints, delivery from just before midnight last night. Ambulating, voiding. Tolerating a regular diet without nausea or vomiting. Normal lochia. Pain is well controlled with oral pain medications. Objective: Vital Sign - Last 24 Hours 05/12/17 05/12/17 05/12/17 05/12/17 16:10 17:00 17:30 18:00 Temp 98.3 Pulse 90 83 90 96 Resp 20 20 20 20 B/P (MAP) 138/84 (102) 127/79 (95) 122/83 (96) 132/76 (94) O2 Delivery Room Air Room Air Room Air Room Air 05/12/17 05/12/17 05/12/17 05/12/17 19:26 19:57 20:28 20:56 Temp 98.2 Pulse 75 93 96 80 Resp 20 20 20 20 B/P (MAP) 128/76 (93) 127/74 (91) 108/84 (92) 128/71 (90) O2 Delivery Room Air Room Air Room Air Room Air 05/12/17 05/12/17 05/12/17 05/12/17 21:27 21:57 22:05 22:08 Temp 98.4 Pulse 78 82 89 89 Resp 18 20 20 20 B/P (MAP) 134/83 (100) 131/82 (98) 175/96 (122) 144/89 (107) Pulse Ox 98 99 99 O2 Delivery Room Air Room Air Room Air Room Air 05/12/17 05/12/17 05/12/17 05/12/17 22:11 22:14 22:17 22:20 Pulse 90 90 82 86 Resp 20 20 20 20 B/P (MAP) 146/77 (100) 147/92 (110) 125/75 (92) 133/73 (93) Pulse Ox 99 99 99 99 O2 Delivery Room Air Room Air Room Air Room Air 05/12/17 05/12/17 05/12/17 05/12/17 22:23 22:26 22:29 22:32 Temp 99.2 Pulse 85 81 86 99 Resp 20 20 20 20 B/P (MAP) 126/78 (94) 124/68 (86) 118/66 (83) 120/73 (89) Pulse Ox 97 99 98 98 O2 Delivery Room Air Room Air Room Air Room Air 05/12/17 05/12/17 05/12/17 05/12/17 22:35 22:38 22:40 22:45 Pulse 76 78 74 74 Resp 20 20 20 20 B/P (MAP) 124/69 (87) 120/68 (85) 119/68 (85) 119/69 (86) Pulse Ox 97 97 97 98 O2 Delivery Room Air Room Air Room Air Room Air 05/12/17 05/12/17 05/12/17 05/12/17 22:50 22:55 23:00 23:05 Temp 98.8 Pulse 75 80 83 73 Resp 20 20 18 18 B/P (MAP) 114/74 (87) 116/67 (83) 111/70 (84) 113/69 (84) Pulse Ox 98 98 99 99 O2 Delivery Room Air Room Air Room Air Room Air 05/12/17 05/12/17 05/12/17 05/12/17 23:15 23:21 23:25 23:32 Pulse 73 85 83 98 Resp 18 18 18 B/P (MAP) 118/68 (85) 122/81 (95) 127/58 (81) 133/92 (106) Pulse Ox 99 99 99 95 O2 Delivery Room Air Room Air Room Air Room Air 05/12/17 05/12/17 05/12/17 05/12/17 23:36 23:41 23:50 23:55 Temp 98.6 Pulse 90 90 88 98 Resp 20 18 20 20 B/P (MAP) 123/79 (94) 134/84 (101) 143/66 (91) 126/64 (84) Pulse Ox 100 100 O2 Delivery Room Air Room Air Room Air Room Air 05/13/17 05/13/17 05/13/17 05/13/17 00:00 00:00 00:15 00:31 Temp 98.1 97.7 Pulse 88 102 86 Resp 18 B/P (MAP) 125/57 (79) 144/77 (99) 132/60 (84) Pulse Ox 100 O2 Delivery Room Air Room Air Room Air 05/13/17 05/13/17 05/13/17 05/13/17 00:47 00:58 01:28 02:00 Temp 98.4 98.1 97.8 Pulse 98 85 83 83 Resp 18 18 18 18 B/P (MAP) 164/81 (108) 133/60 (84) 120/61 (80) 127/58 (81) O2 Delivery Room Air Room Air Room Air Room Air 05/13/17 04:00 Temp 98.5 Pulse 83 Resp 18 B/P (MAP) 132/69 (90) Pulse Ox 98 O2 Delivery Room Air Intake and Output 05/12/17 05/12/17 05/13/17 15:00 23:00 07:00 Intake Total 1000 ml Output Total 0 ml Balance 1000 ml Physical Exam: General - Alert and oriented, no apparent distress Abdomen - Soft, appropriately tender to palpation, non-distended, fundus firm at umbilicus Extremities - no edema, negative Jennifer's bilaterally Assessment: PPD 1 NVD Plan: Routine care. Encourage breast feeding. Encourage ambulation. Ferrous sulfate supplementation. PP labs tomorrow morning Plan for discharge tomorrow Vitals - Labs Vital Signs - I&O Vital Signs Date Time Temp Pulse Resp B/P (MAP) Pulse Ox O2 Delivery O2 Flow Rate FiO2 05/13/17 04:00 98.5 83 18 132/69 (90) 98 Room Air 05/13/17 02:00 97.8 83 18 127/58 (81) Room Air 05/13/17 01:28 98.1 83 18 120/61 (80) Room Air 05/13/17 00:58 85 18 133/60 (84) Room Air 05/13/17 00:47 98.4 98 18 164/81 (108) Room Air 05/13/17 00:31 86 18 132/60 (84) Room Air 05/13/17 00:15 97.7 102 18 144/77 (99) Room Air 05/13/17 00:00 125/57 (79) 05/13/17 00:00 98.1 88 18 100 Room Air 05/12/17 23:55 98 20 126/64 (84) Room Air 05/12/17 23:50 88 20 143/66 (91) Room Air 05/12/17 23:41 98.6 90 18 134/84 (101) 100 Room Air 05/12/17 23:36 90 20 123/79 (94) 100 Room Air 05/12/17 23:32 98 18 133/92 (106) 95 Room Air 05/12/17 23:25 83 18 127/58 (81) 99 Room Air 05/12/17 23:21 85 18 122/81 (95) 99 Room Air 05/12/17 23:15 73 18 118/68 (85) 99 Room Air 05/12/17 23:05 98.8 73 18 113/69 (84) 99 Room Air 05/12/17 23:00 83 18 111/70 (84) 99 Room Air 05/12/17 22:55 80 20 116/67 (83) 98 Room Air 05/12/17 22:50 75 20 114/74 (87) 98 Room Air 05/12/17 22:45 74 20 119/69 (86) 98 Room Air 05/12/17 22:40 74 20 119/68 (85) 97 Room Air 05/12/17 22:38 78 20 120/68 (85) 97 Room Air 05/12/17 22:35 76 20 124/69 (87) 97 Room Air 05/12/17 22:32 99 20 120/73 (89) 98 Room Air 05/12/17 22:29 86 20 118/66 (83) 98 Room Air 05/12/17 22:26 81 20 124/68 (86) 99 Room Air 05/12/17 22:23 99.2 85 20 126/78 (94) 97 Room Air 05/12/17 22:20 86 20 133/73 (93) 99 Room Air 05/12/17 22:17 82 20 125/75 (92) 99 Room Air 05/12/17 22:14 90 20 147/92 (110) 99 Room Air 05/12/17 22:11 90 20 146/77 (100) 99 Room Air 05/12/17 22:08 89 20 144/89 (107) 99 Room Air 05/12/17 22:05 89 20 175/96 (122) 99 Room Air 05/12/17 21:57 82 20 131/82 (98) 98 Room Air 05/12/17 21:27 98.4 78 18 134/83 (100) Room Air 05/12/17 20:56 80 20 128/71 (90) Room Air 05/12/17 20:28 96 20 108/84 (92) Room Air 05/12/17 19:57 93 20 127/74 (91) Room Air 3/13/18 19:26 98.2 75 20 128/76 (93) Room Air 05/12/17 18:00 96 20 132/76 (94) Room Air 05/12/17 17:30 90 20 122/83 (96) Room Air 05/12/17 17:00 83 20 127/79 (95) Room Air 05/12/17 16:10 98.3 90 20 138/84 (102) Room Air I & O 05/13/17 07:00 Intake Total 1000 ml Output Total 0 ml Balance 1000 ml Labs Laboratory Tests 05/12/17 16:30: White Blood Count 9.6, Red Blood Count 3.78L, Hemoglobin 12.1, Hematocrit 36, Mean Corpuscular Volume 94, Mean Corpuscular Hemoglobin 32, Mean Corpuscular Hemoglobin Concent 34, Red Cell Distribution Width 14.1, Platelet Count 253, Mean Platelet Volume 11.7H, Neutrophils (%) (Auto) 77H, Lymphocytes (%) (Auto) 16, Monocytes (%) (Auto) 7, Eosinophils (%) (Auto) 0, Basophils (%) (Auto) 0, Neutrophils # (Auto) 7.4, Lymphocytes # (Auto) 1.5, Monocytes # (Auto) 0.7, Eosinophils # (Auto) 0.0, Basophils # (Auto) 0.0 BONITA SALAS DO May 13, 2017 8:26 am
[2017-05-13] MEDS: FERROUS SULF 325 MG (IRON) TAB PO SCH (08:40)
[2017-05-13] MEDS: PRENATAL VITAMIN 1 EA TAB PO SCH (08:47)
[2017-05-13] MEDS: DOCUSATE SODIUM 100 MG (COLACE) CAP PO SCH ×2 (08:48→19:52)
[2017-05-14 01:18] VITALS: BP 111/68
[2017-05-14] MEDS: IBUPROFEN 600 MG (MOTRIN) TAB PO SCH ×2 (01:18→08:23)
[2017-05-14 05:19] LABS: BASOPHILS % (AUTO) 0 % (0-10); EOSINOPHILS # (AUTO) 0.1 10^3/uL (0.0-0.3); EOSINOPHILS % (AUTO) 1 % (0-10); HEMATOCRIT 31 % (35-52); HEMOGLOBIN 10.3 G/DL (11.5-16.0); LYMPHOCYTES # (AUTO) 2.3 X 10^3 (1.0-4.0); LYMPHOCYTES % (AUTO) 29 % (12-44); MEAN CORPUSCULAR HEMOGLOBIN 32 PG (25-34); MEAN CORPUSCULAR HGB CONC 33 G/DL (32-36); MEAN CORPUSCULAR VOLUME 96 FL (80-99); MEAN PLATELET VOLUME 10.7 FL (7.4-10.4); MONOCYTES # (AUTO) 0.7 X 10^3 (0.0-1.0); MONOCYTES % (AUTO) 9 % (0-12); NEUTROPHILS # (AUTO) 4.9 X 10^3 (1.8-7.8); NEUTROPHILS % (AUTO) 61 % (42-75); PLATELET COUNT 215 10^3/uL (130-400); RED BLOOD COUNT 3.23 10^6/uL (4.35-5.85); RED CELL DISTRIBUTION WIDTH 13.9 % (10.0-14.5)
[2017-05-14 08:00] VITALS: BP_SYST 115; BP_SYST 5; BP_DIAS 70
[2017-05-14] MEDS: PRENATAL VITAMIN 1 EA TAB PO SCH (08:23)
[2017-05-14] MEDS: DOCUSATE SODIUM 100 MG (COLACE) CAP PO SCH (08:23)
[2017-05-14] MEDS: FERROUS SULF 325 MG (IRON) TAB PO SCH (08:26)
--- NOTE | 2017-05-14 09:16 | Anesthesia-Regional Post-Op ---
Regional Patient Condition Mental Status: Alert, Oriented x3 Circulation: Same as Pre-Op Headache: Absent Sensation: Full Recovery Motor Block: Absent Post Op Complications Complications None Follow Up Care/Instructions Patient Instructions None needed. Anesthesia/Patient Condition Patient is doing well, no complaints, stable vital signs, no apparent adverse anesthesia problems. No complications reported per nursing. ELLIE HANDLEY CRNA May 14, 2017 09:16
[2017-05-14 11:25] VITALS: BP 115/70
--- NOTE | 2017-05-14 13:15 | Postpartum Progress Note ---
Note Note Day # 2 Subjective: Patient is without complaints. Ambulating, voiding. Tolerating a regular diet without nausea or vomiting. Normal lochia. Pain is well controlled with oral pain medications. [] feeding. [] Objective: Vital Sign - Last 24 Hours 05/13/17 05/13/17 05/14/17 05/14/17 14:25 19:52 01:18 08:00 Temp 98.0 97.8 98.0 97.9 Pulse 76 75 74 75 Resp 16 16 18 18 B/P (MAP) 122/69 (86) 116/78 (91) 111/68 (82) 5/70 (49) Pulse Ox 98 98 98 98 O2 Delivery Room Air Room Air Room Air Room Air Physical Exam: General - Alert and oriented, no apparent distress Abdomen - Soft, appropriately tender to palpation, non-distended, fundus firm at umbilicus Extremities - no edema, negative Jennifer's bilaterally Assessment: PPD 2 Plan: Routine care. Encourage breast feeding. Encourage ambulation. Ferrous sulfate supplementation. Plan for discharge today Vitals - Labs Vital Signs - I&O Vital Signs Date Time Temp Pulse Resp B/P (MAP) Pulse Ox O2 Delivery O2 Flow Rate FiO2 05/14/17 08:00 97.9 75 18 5/70 (49) 98 Room Air 05/14/17 01:18 98.0 74 18 111/68 (82) 98 Room Air 05/13/17 19:52 97.8 75 16 116/78 (91) 98 Room Air 05/13/17 14:25 98.0 76 16 122/69 (86) 98 Room Air Labs Laboratory Tests 05/14/17 05:05: White Blood Count 8.0, Red Blood Count 3.23L, Hemoglobin 10.3L, Hematocrit 31L, Mean Corpuscular Volume 96, Mean Corpuscular Hemoglobin 32, Mean Corpuscular Hemoglobin Concent 33, Red Cell Distribution Width 13.9, Platelet Count 215, Mean Platelet Volume 10.7H, Neutrophils (%) (Auto) 61, Lymphocytes (%) (Auto) 29 , Monocytes (%) (Auto) 9, Eosinophils (%) (Auto) 1, Basophils (%) (Auto) 0, Neutrophils # (Auto) 4.9, Lymphocytes # (Auto) 2.3, Monocytes # (Auto) 0.7, Eosinophils # (Auto) 0.1, Basophils # (Auto) 0.0 BONITA SALAS DO May 14, 2017 1:15 pm
== END 2017-05-14 11:25 | disposition home or self-care (01) | DRG 775 ==
LOC: LDRP 15:05
PROVIDERS: ADMIT Obstetrics & Gynecology; ATTEND Obstetrics & Gynecology
PROC: 10E0XZZ Delivery of Products of Conception, External Approach (ICD-10-PCS; principal; 2017-05-12)
DX: O80 Encounter for full-term uncomplicated delivery (principal); Z37.0 Single live birth; Z3A.37 37 weeks gestation of pregnancy
CPT/HCPCS: 36415; 85025; 86850; 86900; 86901